=== PATIENT | female | born 1975 | race Caucasian/White ===

== ENCOUNTER 2020-02-04 08:45 | Outpatient (CLI) | payer BC, SELFPAY ==
[2020-02-04 09:35] LABS: Alanine Aminotransferase 22 U/L (0-33); Albumin Level 4.2 g/dL (3.5-5.2); Alkaline Phosphatase 68 IU/L (35-105); Anion Gap 17.9 (5-19); Aspartate Amino Transferase 21 U/L (0-32); Blood Urea Nitrogen 11 mg/dL (6-20); Calcium 9.5 mg/dL (8.5-10.5); Carbon Dioxide 25 mmol/L (22-29); Chloride 103 mmol/L (98-107); Globulin 3.2 g/dL (1.3-4.6); Glomerular Filtration Rate 53.5 mL/min (90-130); Glucose 101 mg/dL (65-115); Osmolality Calculated 290 mOsm/kg (285-295); Potassium 3.9 mmol/L (3.5-5.1); Sodium 142 mmol/L (136-145); Total Bilirubin 0.5 mg/dL (0.15-1.2); Total Protein 7.4 g/dL (6.6-8.7)
== END 2020-02-04 08:46 | disposition home or self-care (01) ==
LOC: LAB 08:45
PROVIDERS: PCP Nurse Practitioner; Visit Provider Nurse Practitioner
DX: I10 Essential (primary) hypertension (principal)
CPT/HCPCS: 36415; 80053

== ENCOUNTER 2020-02-10 08:13 | Outpatient (CLI) | payer BC, SELFPAY ==
[2020-02-10 09:19] LABS: Creatinine Urine, Random 113 mg/dL (28-217)
[2020-02-10 10:00] LABS: Microalbum Creatinine Ratio Ur 9 mg/dL (0-20); Microalbumin Random Urine 1 ug/dL (0-20)
== END 2020-02-10 08:14 | disposition home or self-care (01) ==
LOC: LAB 08:16
PROVIDERS: PCP Nurse Practitioner; Visit Provider Nurse Practitioner
DX: Q61.2 Polycystic kidney, adult type (principal)
CPT/HCPCS: 36415; 82044

== ENCOUNTER 2020-02-25 14:09 | Outpatient (CLI) | payer BC, SELFPAY ==
--- NOTE | 2020-02-25 14:15 | CT_ITS ---
WS: [id number] CT ABDOMEN PELVIS TECHNIQUE: Noncontrast CT of the abdomen and pelvis with coronal and sagittal reformatted images. CLINICAL INFORMATION: ADULT TYPE POLYCYSTIC KIDNEY COMPARISON: CT 6 24,011 DLP: 1126.[address] scans at [facility] use at least one of these dose optimization techniques: automat ed exposure control; mA and/or kV adjustment per patient size (includes targeted exams where dose is matched to clinical indication); or iterative reconstruction. FINDINGS: Again seen are changes of polycystic kidney disease with multiple progressed renal cysts and enlargem ent of both kidneys. The number of cysts has increased since the prior examination. Largest right sb al cyst measures 5.7 x 4.7 cm in the right. Bilateral peripelvic renal cysts. Adrenal glands are norm al. Multiple hepatic cysts the largest in the left hepatic lobe measuring 5.0x4.7 cm. Multiple hepatic cy sts progressed in number since the prior examination. Lung bases are well aerated. Noncontrast pancreas is unremarkable. Noncontrast spleen is normal. Norm al caliber abdominal aorta. Sigmoid diverticulosis. No evidence of acute diverticulitis. Cholecystectomy is new from previous. Sm all bilateral ovarian cysts likely physiologic. Normal lumbar spine. No other significant changes from previous. CT/CT abdomen pelvis wo con [id number] IMPRESSION: 1. Progressed changes of polycystic kidney disease with enlargement of both ki dneys as described above. 2. Interval increase in the number of hepatic and renal cysts compared to 2011 . 3. Bilateral peripelvic renal cysts. Both ureters are decompressed. 4. Interval cholecystectomy is new from previous. 5. Largest hepatic cyst measures 5.1 x 4.7 cm 6. No other significant changes
== END 2020-02-25 14:10 | disposition home or self-care (01) ==
LOC: RADWPI 14:14
PROVIDERS: Family Provider Nurse Practitioner; PCP Nurse Practitioner; Visit Provider Nurse Practitioner
DX: Q61.2 Polycystic kidney, adult type (principal); N28.9 Disorder of kidney and ureter, unspecified; Q61.02 Congenital multiple renal cysts; K76.89 Other specified diseases of liver
CPT/HCPCS: 74176

== ENCOUNTER 2020-04-20 11:46 | Outpatient (CLI) | payer BC, SELFPAY | END 2020-04-20 11:47 | disposition home or self-care (01) | LOC: RADSHAW 11:49 | PROVIDERS: PCP Nurse Practitioner; Visit Provider Nurse Practitioner | DX: Z12.4 Encounter for screening for malignant neoplasm of cervix (principal) | CPT/HCPCS: 88175 ==

== ENCOUNTER 2020-04-20 11:47 | Outpatient (CLI) | payer BC, SELFPAY ==
--- NOTE | 2020-04-20 11:59 | MM_ITS ---
WS: [id number] SCREENING DIGITAL MAMMOGRAM WITH CAD HISTORY: SCREENING COMPARISON: 03/11/2019 and 02/20/2019 Bilateral CC and MLO views submitted. Computer aided detection analyzed. Breast composition: There are scattered areas of fibroglandular density. Asymmetry measuring 1.0 cm o n the RIGHT MLO position above the nipple needs further evaluation. Otherwise no interval change. MM/[place] [id number] IMPRESSION: BI-RADS: 0-Incomplete: Need additional imaging evaluation FOLLOW UP: Need Additional Imaging RIGHT breast: Spot compression views (MLO). True ML. Ultrasound to follow if ab normality persists.
[2020-04-20 14:02] LABS: Follicle Stimulating Hormone 82.6 mIU/mL
== END 2020-04-20 11:48 | disposition home or self-care (01) ==
LOC: LAB 11:49
PROVIDERS: PCP Nurse Practitioner; Visit Provider Obstetrics & Gynecology
DX: Z12.31 Encounter for screening mammogram for malignant neoplasm of breast (principal); R23.2 Flushing; N64.89 Other specified disorders of breast
CPT/HCPCS: 77067; 83001

== ENCOUNTER 2020-05-18 12:48 | Outpatient (CLI) | payer BC, SELFPAY ==
--- NOTE | 2020-05-18 13:00 | MM_ITS ---
WS: [id number] ADDITIONAL VIEWS RIGHT BREAST HISTORY: inconclusive mammogram COMPARISON: 02/20/2019, 04/20/2020 Compression views MLO projection. True ML also submitted. Asymmetry in the superior RIGHT breast resolves with additional imaging. MM/[place] [id number] IMPRESSION: BI-RADS: 2-Benign FOLLOW-UP: 1 Year Follow-up
== END 2020-05-18 12:49 | disposition home or self-care (01) ==
LOC: RADSHAW 12:52
PROVIDERS: PCP Nurse Practitioner; Visit Provider Obstetrics & Gynecology
DX: R92.2 Inconclusive mammogram (principal)
CPT/HCPCS: 77065

== ENCOUNTER → 2020-05-21 14:14 | Outpatient (BNVA) | payer BC, SELFPAY | PROVIDERS: PCP Nurse Practitioner; Visit Provider Obstetrics & Gynecology | DX: Z01.812 Encounter for preprocedural laboratory examination (principal); R87.610 Atypical squamous cells of undetermined significance on cytologic smear of cervix (ASC-US); R87.810 Cervical high risk human papillomavirus (HPV) DNA test positive; Z78.0 Asymptomatic menopausal state | CPT/HCPCS: 81025; 88305 ==

== ENCOUNTER 2024-03-28 10:13 | Observation (INO) | payer BC, SELFPAY ==
[2024-03-28] VITALS (19 sets, daily range): BP systolic 119–145; BP diastolic 76–93; PULSE 67–85; RESP 15–26; TEMP 36.1–36.9; O2SAT 90–100; BMI 37.8; BMI 40.1
--- NOTE | 2024-03-28 | XR_ITS ---
WS: [id number] Exam: XR ankle RT 2V [id number] Date/Time of Exam: 03/28/2024 12:00 AM Reason For Exam: ARCADIO LOGAN Again noted is a markedly comminuted fracture of the lower fibula as well as a transverse fracture th rough the medial malleolus. Alignment is unchanged since the latest study of 03/28/2024. Soft tissue s welling about the ankle. There may be a fracture of the posterior tibial shelf. External traction yamini dware noted in the mid and hindfoot. XR/XR ankle RT 2V [id number] IMPRESSION: 1. Bimalleolar fractures unchanged in position. There may also be a posterior t ibial shelf fracture.
--- NOTE | 2024-03-28 10:19 | XR_ITS ---
WS: [email or web address] Right ankle, 3 views, 03/28/2024 Clinical Data: pain Comparison: None. Findings: There is a fracture dislocation of the right ankle. There is a fracture of the distal right fibula an d a fracture of the medial malleolus. The talus and right foot are dislocated posteriorly from the pl afond. There is soft tissue swelling surrounding the ankle. XR/XR ankle RT min 3V* [id number] Impression: Fracture dislocation of the right ankle with posterior dislocation of the righ t foot and the distal fibula and medial malleolus.
[2024-03-28] MEDS: etomidate 2 mg/mL INJ SDV 10 mL 10 MG IVP (10:38)
--- NOTE | 2024-03-28 10:39 | XR_ITS ---
WS: [email or web address] Right ankle, 2 views, 03/28/2024, 1047 hours Clinical Data: POST REDUCTION Comparison: None. Findings: There is reduction of the posterior fracture dislocation of the right ankle. There is closer approxim ation of the talus to the plafond of the tibia. XR/XR ankle RT 2V [id number] Impression: Reduction of the posterior fracture dislocation of the right ankle.
[2024-03-28] MEDS: morphine 4 mg/mL SDV 1 mL IM (10:52)
[2024-03-28] MEDS: ondansetron 2 mg/ML SDV 2 mL 4 MG IVP (10:52)
--- NOTE | 2024-03-28 11:48 | ECG_ITS ---
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 Measurements Intervals [place] Rate: 72 P: 18 AL: 160 QRS: -9 QRSD: 73 T: 7 QT: 383 QTc: 419 Interpretive Statements SINUS RHYTHM No previous ECG available for comparison Electronically Signed On 03-28-2024 18:29:39 CDT by Rishabh Woods M.D. [email or web address]
--- NOTE | 2024-03-28 11:48 | XR_ITS ---
WS: [id number] Portable AP upright chest, 03/28/2024 Clinical Data: dyspnea/cough Comparison: None Findings: No nodules, masses or effusions are seen. The heart is normal. The pulmonary vascularity is not increased. No pneumonia or pneumothorax is seen. The aortic arch and descending thoracic aorta s how tortuosity. XR/XR chest 1V portable [id number] Impression: Atherosclerosis.
--- NOTE | 2024-03-28 11:52 | ANES.PREANE2 ---
Pre-Anesthetic Assessment Height/Weight: Height 5 ft 1 in Weight 200 lb Temp Pulse Resp BP Pulse Ox O2 Del Method 98.1 F 75 16 145/86 98 Room Air 03/28/24 10:27 03/28/24 10:37 03/28/24 10:37 03/28/24 10:37 03/28/24 10:27 03/28/24 10:37 Operation Date: 03/28/24 12:00 Proposed Procedures p External Fixator Lower Extremity External Fixator Ankle(Right) - Tyler Hinojosa DPM Social No alcohol and No tobacco Exam alert, oriented x 3, clear to auscultation bilaterally and regular rate & rhythm Airway Submandibular: within normal limits Cervical ROM: within normal limits Mallampati: Class III Dentition: full Anesthetic Plan ASA status: 2 Anesthesia: General Other: No prior issues with anesthesia Patient had a glass of water this morning around 8 AM No significant past medical history Patient denies cardiac or pulmonary issues METs greater than 4 Plan for general anesthesia Medications/Allergies Home Medications Medication Instructions Recorded Confirmed Last Taken Type lisinopril 10 mg tablet 10 mg PO DAILY 04/20/20 06/05/20 Unknown History sertraline 50 mg tablet 25 mg PO DAILY 04/20/20 06/05/20 Unknown History conj estrogen-medroxyprogesterone 1 tab PO DAILY #30 tabs 05/21/20 06/05/20 Unknown Rx 0.3 mg-1.5 mg tablet (Prempro) calcium carbonate (Calcium 600) 600 mg PO DAILY 06/05/20 06/05/20 Unknown History multivitamin with minerals-folic 2 mcg PO DAILY 06/05/20 06/05/20 Unknown History acid 200 mcg chewable tablet (Adult Multivitamin Gummies) Allergies Allergy/AdvReac Type Severity Reaction Status Date / Time Sulfa (Sulfonamide Allergy itching, Verified 03/28/24 10:37 Antibiotics) rash PFSH Anesthesia Medical History Well woman exam with routine gynecological exam Surgical History History of cholecystectomy Family History Mother Hypertension Sister Hypercholesteremia Social History Smoking and tobacco/nicotine status: never used tobacco/nicotine Alcohol intake: never Substance/Drug Use: never Data Anesthesia Cardiac Studies: No Data to Display
[2024-03-28] MEDS: sodium chloride 0.9% 1,000 ML 30 ML IV (11:59)
[2024-03-28] MEDS: scopolamine 1.5 Patch 1 PATCH TRANSDERMA (12:02)
--- NOTE | 2024-03-28 12:10 | W.ED.EXTPRO ---
HPI - Extremity Problem General: Chief complaint: Extremity Injury, Lower Stated complaint: right ankle pain Time Seen by Provider: 03/28/24 10:19 History of Present Illness: 49-year-old female presents emergency room with right ankle pain. She missed a step and fell down while stepping out of her house. Has a obvious deformity of the right ankle. She did receive fentanyl en route she is otherwise awake and alert initially entered the room the deformity is quite obvious and there is some tenting of the skin laterally. She denies any other injuries not strike her head there is no loss of consciousness no other extremity injury Associated symptoms: Deny chest pain, fever(s) or rash Related Data Home Medications Medication Instructions Recorded Confirmed lisinopril 10 mg tablet 10 mg PO DAILY 04/20/20 06/05/20 sertraline 50 mg tablet 25 mg PO DAILY 04/20/20 06/05/20 calcium carbonate (Calcium 600) 600 mg PO DAILY 06/05/20 06/05/20 multivitamin with minerals-folic 2 mcg PO DAILY 06/05/20 06/05/20 acid 200 mcg chewable tablet (Adult Multivitamin Gummies) Previous Rx's Medication Instructions Recorded conj estrogen-medroxyprogesterone 1 tab PO DAILY #30 tabs 05/21/20 0.3 mg-1.5 mg tablet (Prempro) Allergies Allergy/AdvReac Type Severity Reaction Status Date / Time Sulfa (Sulfonamide Allergy itching, Verified 03/28/24 10:37 Antibiotics) rash Review of Systems Const: Denies: fever(s) or chills Card: Denies: chest pain Resp: Denies: dyspnea GI: Denies: abdominal pain : Denies: dysuria, urinary frequency or urinary urgency Musc: Reports: joint pain and joint swelling; Denies: neck pain or back pain Skin/Breast: Denies: rash PFSH ED PFSH: Medical History Vertigo Anxiety Hyperlipidemia Hypertension Chronic kidney disease Polycystic kidney disease Well woman exam with routine gynecological exam Surgical History History of cholecystectomy Family History Mother Hypertension Sister Hypercholesteremia Social History Smoking and tobacco/nicotine status: never used tobacco/nicotine Alcohol intake: never Substance/Drug Use: never Physical Exam Const: GENERAL APPEARANCE: cooperative ORIENTATION/CONSCIOUSNESS: Yes awake, Yes oriented to person, Yes oriented to place and Yes oriented to time HENMT: COMMON NORMALS: normocephalic, atraumatic and hearing grossly normal bilaterally HEAD & SCALP: normocephalic and atraumatic Resp: COMMON NORMALS: normal respiratory effort, No retractions, No use of accessory muscles and clear to auscultation bilaterally AUSCULTATION: clear to auscultation bilaterally Cardio: COMMON NORMALS: regular rate, regular rhythm and No murmurs present (Cardio) RATE: regular rate RHYTHM: regular rhythm GI: COMMON NORMALS: Soft to palpation and No hepatosplenomegaly present AUSCULTATION: Yes normoactive bowel sounds PALPATION: Yes Soft to palpation, No Tenderness to palpation present (GI), No Guarding due to palpation present (GI) and Yes No hepatosplenomegaly present Extremity: OTHER: Obvious deformity of the right ankle with skin tenting at the lateral malleolus. Dorsalis pedis pulse intact. Capillary refill normal. Reexamined after reduction normal capillary refill dorsalis pedis pulse intact no further tenting. No signs of open fracture. Neuro: SENSORIUM/ORIENTATION: Yes oriented to person, Yes oriented to place and Yes oriented to time Skin: COMMON NORMALS: no rashes or lesions noted GENERAL SKIN EXAM: no rashes or lesions noted Procedures Orthopedic Joint Reduction Joint #1: Time Out Performed: Yes Side: right Joint Reduction Location: ankle Analgesia: procedural sedation Shoulder Technique Used (if applicable): traction/counter-traction Post-reduction neuro exam: intact Post-reduction vascular: intact Post Reduction X-Ray Obtained: Yes Post Reduction X-Ray Results: reduced Splint Applied: Yes Patient Tolerated Procedure: well Orthopedic Splinting/Casting Injury #1: Side: right Lower Extremity Injury Location: ankle Lower Extremity Immobilizer: posterior splint Additional Comments: Patient admitted for surgical reduction of the ankle fracture as it is very unstable. Procedural Sedation Indication: fracture/dislocation reduction ASA Class: I Preparation: sack keeper applied, pulse oximeter, supplemental O2 applied, suction/airway equipment at bedside and IV secured IV Etomidate dose (mg): 10 Additional Comments: Patient had brief transient hypoxia with pretty significant fasciculations but this resolved with increased oxygen supplementation. Patient recovered without further difficulty no other interventions required Course Vital Signs: Vital signs: Vital Signs Temperature 97.6 F 03/28/24 14:24 Pulse Rate 84 03/28/24 14:24 Respiratory Rate 18 03/28/24 14:24 Blood Pressure 123/87 03/28/24 14:24 Pulse Oximetry 100 03/28/24 14:24 Oxygen Delivery Me thod Nasal Cannula 03/28/24 14:24 Oxygen Flow Rate 2 03/28/24 14:24 MDM - Extremity (Nontraumatic) Medical Decision Making Fracture reduced at the bedside under conscious sedation with etomidate morphine given for pain very unstable fracture while we were positioning for postreduction x-rays it slipped out of place it was easily reduced back into position. I contacted Dr. Hinojosa on-call for podiatry who reviewed the films we discussed case he agrees patient will need surgical stabilization emergently due to the unstable nature of the fracture. Discussed with hospitalist will place on observation orders written initial preop lab orders written as well. Medical Records I reviewed the patient's medical records. Lab Data I reviewed the patient's lab results. 03/28/24 12:26 03/28/24 12:26 Radiology Impressions Chest X-Ray 03/28/24 11:48 Impression: Atherosclerosis. Ankle X-Ray 03/28/24 13:37 Impression: External fixation with reduction of comminuted fracture dislocation of the right ankle. Laboratory Results WBC 9.73 10^3/uL (3.29-11.43) 03/28/24 12: RBC 4.04 10^6/uL (3.85-5.65) 03/28/24 12:26 Hgb 12.80 g/dL (11.27-16.99) 03/28/24 12: Hct 38.1 % (36-47) 03/28/24 12: MCV 94.3 fl (85-98) 03/28/24 12:26 MCH 31.7 pg (27-33) 03/28/24 12: MCHC 33.6 g/dL (30-55) 03/28/24 12: RDW 12.6 % (12.1-15.1) 03/28/24 12:26 Plt Count 227 10^3/cmm (157-399) 03/28/24 12: MPV 10.4 fL (7.4-10.4) 03/28/24 12: Neut % (Auto) 82.5 % 03/28/24 12: Lymph % (Auto) 13.1 % 03/28/24 12: [place] % (Auto) 3.6 % 03/28/24 12: Eos % (Auto) 0.1 % 03/28/24 12: Baso % (Auto) 0.3 % 03/28/24 12: Neut # (Auto) 8.03 10^3/uL (1.8-7.7) H 03/28/24 12: Lymph # (Auto) 1.3 10^3/uL (0.8-4.8) 03/28/24 12: [place] # (Auto) 0.4 10^3/uL (0.2-0.9) 03/28/24 12: Eos # (Auto) 0.0 10^3/uL (0.0-0.8) 03/28/24 12: Baso # (Auto) 0.0 10^3/uL (0.0-0.1) 03/28/24 12: Nucleated RBC % (auto) 0 % 03/28/24 12: Nucleated RBCs # 0.0 /100WBC 03/28/24 12: Sodium 140 mmol/L (136-145) 03/28/24 12: Potassium 4.1 mmol/L (3.5-5.1) 03/28/24 12: Chloride 105 mmol/L (98-107) 03/28/24 12: Carbon Dioxide 24 mmol/L (22-29) 03/28/24 12: Anion Gap 15.1 (5-19) 03/28/24 12:26 BUN 22 mg/dL (6-20) H 03/28/24 12:26 Creatinine 1.5 mg/dL (0.5-0.9) H 03/28/24 12:26 GFR Calculation 36.8 mL/min (90-130) L 03/28/24 12:26 Glucose 133 mg/dL (65-115) H 03/28/24 12:26 Calculated Osmolality 295 mOsm/kg (285-295) 03/28/24 12:26 Calcium 8.9 mg/dL (8.5-10.5) 03/28/24 12:26 Total Bilirubin 0.6 mg/dL (0.15-1.2) 03/28/24 12:26 AST 27 U/L (0-32) 03/28/24 12:26 ALT 29 U/L (0-33) 03/28/24 12:26 Alkaline Phosphatase 88 U/L (35-105) 03/28/24 12:26 Total Protein 7.1 g/dL (6.6-8.7) 03/28/24 12:26 Albumin 4.2 g/dL (3.5-5.2) 03/28/24 12:26 Globulin 2.9 g/dL (1.3-4.6) 03/28/24 12:26 All radiology interpretation(s) finalized by discharge Discharge Plan Discharge Patient Disposition: Admitted As Inpatient Admit Provider: Tyler Hinojosa Clinical Impression: Closed right ankle fracture, Chronic kidney disease, Hypertension Condition: Stable Coding Level of Care Code ED Telecommunications Administrator for Cait Antonio
--- NOTE | 2024-03-28 12:20 | ANES.PROC ---
Anesthesia Procedures Procedure/Date: 03/28/24 Nerve Block ^: Nerve Block 1: Main Anesthesia: other Time Out Performed: Yes Consent: requested by attending/covering physician and from patient Nerve block location: adductor canal Anesthesia monitors applied: pulse oximetry, EKG, BP cuff and oxygen Nerve block position: semi sitting Anesthetic Used: ropivicaine 0.5% Amount of anesthesia used (mL): 15 Ultrasound used to: recognize landmarks Nerve Stimulator Used?: No Interscalene/Femoral BLK: 4 stimuplex 21 g needle used for position and inplane approach Injection: neg aspiration of heme Patient Tolerated Procedure: well Complications: none Additional Comments: decadron 4mg added to block Nerve Block 2: Main Anesthesia: other Time Out Performed: Yes Consent: requested by attending/covering physician and from patient Nerve block location: popliteal Anesthesia monitors applied: pulse oximetry, EKG, BP cuff and oxygen Nerve block position: semi sitting Anesthetic Used: ropivicaine 0.5% Amount of anesthesia used (mL): 25 Ultrasound used to: recognize landmarks Nerve Stimulator Used?: Yes Interscalene/Femoral BLK: 4 stimuplex 21 g needle used for position and inplane approach Injection: neg aspiration of heme Patient Tolerated Procedure: well Complications: none
--- NOTE | 2024-03-28 12:20 | P.ANESASSM_ITS ---
Pre-Anesthetic Assessment Height/Weight: Height 5 ft 1 in Weight 200 lb Temp Pulse Resp BP Pulse Ox O2 Del Method 97.0 F L 81 18 142/85 98 Room Air 03/28/24 11:53 03/28/24 11:53 03/28/24 11:53 03/28/24 11:53 03/28/24 11:53 03/28/24 11:53 Operation Date: 03/28/24 12:00 Proposed Procedures p External Fixator Lower Extremity External Fixator Ankle(Right) - Tyler Hinojosa DPM Last intake: Intake Last Liquid Date 03/28/24 Last Liquid Time 08:30 Last Solid Date 03/27/24 Last Solid Time 20:30 Medications/Allergies Home Medications Medication Instructions Recorded Confirmed Last Taken Type lisinopril 10 mg tablet 10 mg PO DAILY 04/20/20 06/05/20 Unknown History sertraline 50 mg tablet 25 mg PO DAILY 04/20/20 06/05/20 Unknown History conj estrogen-medroxyprogesterone 1 tab PO DAILY #30 tabs 05/21/20 06/05/20 Unknown Rx 0.3 mg-1.5 mg tablet (Prempro) calcium carbonate (Calcium 600) 600 mg PO DAILY 06/05/20 06/05/20 Unknown History multivitamin with minerals-folic 2 mcg PO DAILY 06/05/20 06/05/20 Unknown History acid 200 mcg chewable tablet (Adult Multivitamin Gummies) Allergies Allergy/AdvReac Type Severity Reaction Status Date / Time Sulfa (Sulfonamide Allergy itching, Verified 03/28/24 10:37 Antibiotics) rash Current Medications Generic Name Dose Route Start Last Admin Trade Name Enedina PRN Reason Stop Dose Admin Sodium Chloride 1,000 mls @ 30 mls/hr 03/28/24 12:00 03/28/24 11:59 Sodium Chloride 0.9% IV 03/29/24 11:59 30 mls/hr .Q24H JOSE ENRIQUE Administration PFSH Anesthesia Medical History Well woman exam with routine gynecological exam Surgical History History of cholecystectomy Family History Mother Hypertension Sister Hypercholesteremia Social History Smoking and tobacco/nicotine status: never used tobacco/nicotine Alcohol intake: never Substance/Drug Use: never Data Anesthesia 03/28/24 12:26 03/28/24 12:26 Short CBC 03/28/24 Range/Units 12:26 WBC 9.73 (3.29-11.43) 10^3/uL Hgb 12.80 (11.27-16.99) g/dL Hct 38.1 (36-47) % MCV 94.3 (85-98) fl Plt Count 227 (157-399) 10^3/cmm Neut % (Auto) 82.5 % Neut # (Auto) 8.03 H (1.8-7.7) 10^3/uL Cardiac Studies: 2 No Data to Display
--- NOTE | 2024-03-28 12:21 | W.PM.OPSUD ---
Surgery/Procedure H&P Update DATE OF PROCEDURE: March 28, 2024 DATE H&P PERFORMED: 03/28/24 H&P UPDATE INFORMATION: I have reviewed H&P completed within last 30 days, I have examined patient prior to procedure, No changes to prior documentation and [place] [facility] [place] indicated PLANNED PROCEDURE: Operation Date: 03/28/24 12:00 Proposed Procedures p External Fixator Lower Extremity External Fixator Ankle(Right) - Tyler Hinojosa DPM
[2024-03-28 12:30] LABS: Basophils % 0.3 %; Eosinophils % 0.1 %; Hematocrit 38.1 % (36-47); Lymphocytes # 1.3 10^3/uL (0.8-4.8); Lymphocytes % 13.1 %; Mean Corpuscular HGB Conc 33.6 g/dL (30-55); Mean Corpuscular Hemoglobin 31.7 pg (27-33); Mean Corpuscular Volume 94.3 fl (85-98); Mean Platelet Volume 10.4 fL (7.4-10.4); Monocytes # 0.4 10^3/uL (0.2-0.9); Monocytes % 3.6 %; Neutrophils # 8.03 10^3/uL (1.8-7.7); Neutrophils % 82.5 %; Nucleated Red Blood Cells % 0 %; Platelet Count 227 10^3/cmm (157-399); Red Blood Count 4.04 10^6/uL (3.85-5.65); Red Cell Distribution Width 12.6 % (12.1-15.1); White Blood Count 9.73 10^3/uL (3.29-11.43)
[2024-03-28 12:49] LABS: Alanine Aminotransferase 29 U/L (0-33); Albumin Level 4.2 g/dL (3.5-5.2); Alkaline Phosphatase 88 U/L (35-105); Anion Gap 15.1 (5-19); Aspartate Amino Transferase 27 U/L (0-32); Blood Urea Nitrogen 22 mg/dL (6-20); Calcium 8.9 mg/dL (8.5-10.5); Carbon Dioxide 24 mmol/L (22-29); Chloride 105 mmol/L (98-107); Creatinine Clr Calc Pharmacy 46.0184; Globulin 2.9 g/dL (1.3-4.6); Glomerular Filtration Rate 36.8 mL/min (90-130); Glucose 133 mg/dL (65-115); Osmolality Calculated 295 mOsm/kg (285-295); Potassium 4.1 mmol/L (3.5-5.1); Sodium 140 mmol/L (136-145); Total Bilirubin 0.6 mg/dL (0.15-1.2); Total Protein 7.1 g/dL (6.6-8.7)
[2024-03-28] MEDS: ceFAZolin 2,000 mg SDV 2000 MG IVP (12:50)
--- NOTE | 2024-03-28 12:56 | P.HP_ITS ---
Providers/Chief Complaint 2 Admitting Physician: Andres Valdes MD Primary Care Provider: Ioana Holder APN Chief Complaint: right ankle pain History of Present Illness Melisa Moreno is a 49 year old female presenting with right ankle fracture after fall. She had no loss of consciousness. She denies any other injuries. She denies any history of sleep apnea, difficulties with anesthesia, bleeding disorders. In the emergency department it was thought her fracture was not stable and it was reduced. Podiatry was called and surgery was recommended. I saw her just prior to surgery in the holding suite. She denied any recent chest pain. She reports she could normally walk without chest pain or shortness of breath and had fair to good exercise capability. She reported no chronic health issues other than hypertension, chronic kidney disease, polycystic kidney disease, anxiety, vertigo. Review of Systems 2 General: Reports: 10 or more systems reviewed and unremarkable except in HPI and below Card: Denies: chest pain Resp: Denies: dyspnea Medications/Allergies Home Medications Medication Instructions Recorded Confirmed Last Taken Type lisinopril 10 mg tablet 10 mg PO DAILY 04/20/20 06/05/20 Unknown History sertraline 50 mg tablet 25 mg PO DAILY 04/20/20 06/05/20 Unknown History conj estrogen-medroxyprogesterone 1 tab PO DAILY #30 tabs 05/21/20 06/05/20 Unknown Rx 0.3 mg-1.5 mg tablet (Prempro) calcium carbonate (Calcium 600) 600 mg PO DAILY 06/05/20 06/05/20 Unknown History multivitamin with minerals-folic 2 mcg PO DAILY 06/05/20 06/05/20 Unknown History acid 200 mcg chewable tablet (Adult Multivitamin Gummies) Allergies Allergy/AdvReac Type Severity Reaction Status Date / Time Sulfa (Sulfonamide Allergy itching, Verified 03/28/24 10:37 Antibiotics) rash PFSH Acute 2 PFSH: Medical History (Updated 03/28/24 @ 13:02 by Andres Valdes MD) Vertigo Anxiety Hyperlipidemia Hypertension Chronic kidney disease Polycystic kidney disease Well woman exam with routine gynecological exam Surgical History History of cholecystectomy Family History Mother Hypertension Sister Hypercholesteremia Social History Smoking and tobacco/nicotine status: never used tobacco/nicotine Alcohol intake: never Substance/Drug Use: never Vitals/I&O/Wt Last Vital Signs Temp 97.0 F L 03/28/24 11:53 Pulse 81 03/28/24 11:53 Resp 18 03/28/24 11:53 BP 142/85 03/28/24 11:53 Pulse Ox 98 03/28/24 11:53 O2 Del Method Room Air 03/28/24 11:53 Weight last 48 hrs Weight 90.718 kg Physical Exam 2 Narrative: General exam is white female, no distress HEENT: Atraumatic normocephalic. Oropharynx clear Neck is supple no lymphadenopathy thyromegaly Cardiovascular regular in rhythm without murmur Lungs clear Abdomen is soft, no obvious organomegaly Extremities no cyanosis clubbing, splint present right lower extremity Skin no rash Neuro no focal deficits Data 03/28/24 12:26 03/28/24 12:26 Other Labs: LFTs are normal Chest x-ray without infiltrate which I reviewed Ankle x-ray fracture dislocation right ankle with posterior dislocation. I reviewed this as well A&P Assessment and plan (1) Closed right ankle fracture: Had fracture dislocation, that was unstable in the emergency department. Podiatry consult N.p.o. Pain control (2) Chronic kidney disease: Avoid renal toxic medication Hydration CBC, BMP tomorrow (3) Hypertension: Hold lisinopril, monitor blood pressure Plan Other medical problems as outlined in past medical history Full code DVT prophylaxis to be addressed following surgery. SCDs for now. I discussed some of the risks and benefits of surgery. Attestations 2 Medical Necessity Statement*: Will likely require less than 2 midnights for lower extremity fracture with need for surgery Diagnoses Closed right ankle fracture S82.891A Chronic kidney disease N18.9 Hypertension I10 Time Spent (min) 54
--- NOTE | 2024-03-28 13:37 | XR_ITS ---
WS: [id number] Right ankle, 3 views, 03/28/2024,1403 hours Clinical Data: post op Comparison: Right ankle, 03/28/2024,1046 hours Findings: External skeletal fixation is now reducing the right ankle fracture. There is a annamarie in the right firs t metatarsal and another annamarie through the calcaneus reducing the comminuted right ankle fracture dislo cation. XR/XR ankle RT min 3V* [id number] Impression: External fixation with reduction of comminuted fracture dislocation of the righ t ankle.
--- NOTE | 2024-03-28 13:40 | P.CONIM_ITS ---
Providers/Reason For Consult 2 Consulting Physician/Specialty*: David Fishman.P.M./podiatry Reason for Consult*: Right trimalleolar ankle fracture Primary Care Provider: Ioana Holder APN History of Present Illness History of Present Illness Melisa Moreno is a 49 year old female who presented to the emergency department this morning (03/28/2024) after sustaining a fall down her front stairs of her house. Patient states that she did not hit her head or lose consciousness with the fall. Right ankle was injured. Patient was unable to bear weight and experienced extreme pain. She presented to the emergency department for further workup and evaluation where she was found to have a severely displaced right ankle fracture. This was reduced and splinted. However, this was noted to be unstable and readily redislocated after reduction. Podiatry was consulted to evaluate and treat. Based on the inherent instability of the fracture pattern was recommended the patient go to the operating room for close reduction and external fixator application. Patient has past medical history significant for hypertension, chronic kidney disease, polycystic kidney disease. Review of Systems 2 General: Reports: 10 or more systems reviewed and unremarkable except in HPI and below Const: Denies: fever(s), chills or fatigue Eyes: Denies: change in vision ENMT: Denies: sinus pain Card: Denies: chest pain, palpitations or lightheadedness Resp: Denies: dyspnea GI: Denies: abdominal pain, nausea or vomiting Musc: Reports: extremity pain, extremity swelling and limited range of motion; Denies: neck pain or back pain Skin/Breast: Reports: skin swelling Neuro: Denies: numbness in extremities Medications/Allergies Home Medications Medication Instructions Recorded Confirmed Last Taken Type lisinopril 10 mg tablet 10 mg PO DAILY 04/20/20 06/05/20 Unknown History sertraline 50 mg tablet 25 mg PO DAILY 04/20/20 06/05/20 Unknown History conj estrogen-medroxyprogesterone 1 tab PO DAILY #30 tabs 05/21/20 06/05/20 Unknown Rx 0.3 mg-1.5 mg tablet (Prempro) calcium carbonate (Calcium 600) 600 mg PO DAILY 06/05/20 06/05/20 Unknown History multivitamin with minerals-folic 2 mcg PO DAILY 06/05/20 06/05/20 Unknown History acid 200 mcg chewable tablet (Adult Multivitamin Gummies) Allergies Allergy/AdvReac Type Severity Reaction Status Date / Time Sulfa (Sulfonamide Allergy itching, Verified 03/28/24 10:37 Antibiotics) rash Current Medications Generic Name Dose Route Start Last Admin Trade Name Freq PRN Reason Stop Dose Admin Sodium Chloride 1,000 mls @ 30 mls/hr 03/28/24 12:00 03/28/24 11:59 Sodium Chloride 0.9% IV 03/29/24 11:59 30 mls/hr .Q24H JOSE ENRIQUE Administration PFSH Acute 2 PFSH: Medical History Vertigo Anxiety Hyperlipidemia Hypertension Chronic kidney disease Polycystic kidney disease Well woman exam with routine gynecological exam Surgical History History of cholecystectomy Family History Mother Hypertension Sister Hypercholesteremia Social History Smoking and tobacco/nicotine status: never used tobacco/nicotine Alcohol intake: never Substance/Drug Use: never Vitals/I&O/Wt Last Vital Signs Temp 97.0 F L 03/28/24 11:53 Pulse 81 03/28/24 11:53 Resp 18 03/28/24 11:53 BP 142/85 03/28/24 11:53 Pulse Ox 98 03/28/24 11:53 O2 Del Method Room Air 03/28/24 11:53 Weight last 48 hrs Weight 200 lb Physical Exam 2 Narrative: BELOW IS A FOCUSED LOWER EXTREMITY EXAM GENERAL: A&O x 3 VASCULAR: DP/PT pulses palpable 2/4 with CFT intact, <3seconds to distal digits DERMATOLOGICAL: Skin turgor and temperature is within normal limits. No interdigital maceration noted. No tenting of the skin or breaks in the skin noted. MUSCULOSKELETAL: Obvious ankle deformity right lower extremity. Pain to right lower extremity consistent with posttraumatic state. Full musculoskeletal exam deferred secondary to posttraumatic state. NEUROLOGICAL: Neurological sensation to the affected foot and ankle is present through L4-S1 dermatomes with no hyper/hypoesthesias, negative Tinel or Valleix's sign IMAGING: Three-view x-rays of the right ankle taken in the emergency department were personally turbid by me which show displaced trimalleolar ankle fracture that underwent subsequent reduction. Postreduction films show appropriate positioning. However, reduction is being manually held by providers hand. Upon redislocation no further x-rays obtained. Data 03/28/24 12:26 03/28/24 12:26 A&P Assessment and plan (1) Trimalleolar fracture of right ankle: Plan -Right trimalleolar ankle fracture -Patient has sustained a severely displaced, right trimalleolar ankle fracture. This underwent reduction in the emergency department. However, due to the inherent instability of the fracture pattern reduction was not maintained. Upon reviewing the initial fracture pattern and amount of dislocation concern for soft tissue envelope as it appeared to be tenting of the medial skin on initial plain films obtained. Based on these findings I opted for closed reduction with application of external fixator to preserve soft tissue envelope until swelling subsides. A lengthy discussion was had with the patient in the emergency department about treatment plans. Patient had been n.p.o. since yesterday evening. Patient was taken to the operating room where she underwent closed reduction and external fixator application under general anesthesia. Patient also received a popliteal block by anesthesia department. -CT scan right ankle reviewed postoperatively which shows trimalleolar ankle fracture with improved position with external fixator intact -Diet: Okay for diet from podiatry standpoint -No further surgical intervention by podiatry during this admission -Pain Mgmt: Per primary team. Recommend [place] or similar for outpatient pain control -Weight bearing: Nonweightbearing to right lower extremity using wheelchair. Patient will need assistance from physical therapy prior to discharge for transfers. -Dressings: Leave postoperative dressing clean, dry, intact -Discharge plan: Patient is okay to discharge home from podiatry standpoint now the CT scan has been obtained and external fixator has been applied. This will be pending medical stabilization and appropriate pain management. Patient will need wheelchair upon discharge from the hospital to maintain nonweightbearing status. Patient will be unable to use crutches with external fixator due to the weight of the fixator and the pain that this will cause on the fracture pattern. Patient is to follow-up with Dr. Hinojosa in the outpatient setting next week Coding Level of Care Code Acute Code for Chg Fwd Diagnoses Trimalleolar fracture of right ankle S82.851A
--- NOTE | 2024-03-28 13:41 | CTR_ITS ---
PROCEDURE INFORMATION: Exam: CT Right Lower Extremity, Ankle Exam date and time: 03/28/2024 4:13 PM Age: 49 years old Clinical indication: Other: FX; Prior surgery; Surgery date: Post-operative (0-2 days); Surgery type: Ankle; Additional info: Ankle fracture/surgical planning TECHNIQUE: Imaging protocol: CT of the right lower extremity without contrast was performed. Exam focused on the ankle. Radiation optimization: All CT scans at this facility use at least one of these dose optimization techniques: automated exposure control; mA and/or kV adjustment per patient size (includes targeted exams where dose is matched to clinical indication); or iterative reconstruction. COMPARISON: CR XR ankle RT min 3V* [id number] 03/28/2024 2:00 PM RADIATION DOSE METRICS: Total DLP (mGy-cm): 136 FINDINGS: Bones/joints: Transverse complete medial malleolar fracture, distracted 5 mm, slight posterior displacement of the distal segment, minimal comminution. Comminuted distal fibular metadiaphyseal fracture, mildly impacted. Distal tibial posterior malleolar fracture, posterior lower margin rotation, minimal comminution, the dominant 16.5 x 18.4 x 9.2 mm fragment is displaced 2 mm superiorly. Small intra-articular bone fragments appear to be present (series 9, images 31 and 25). Trans calcaneal external fixator. Soft tissues: Subcutaneous hyperdensity (54 Hounsfield units) lateral to the lateral malleolus, measuring approximately 3.8 x 3[address]/CT ankle RT wo con* [id number] IMPRESSION: 1. Distal tibial medial and posterior malleolar fractures, comminuted distal fibular fracture. 2. Small intra-articular bone fragments. 3. Lateral soft tissue hematoma.
--- NOTE | 2024-03-28 13:43 | PM.OP ---
Operative Report Date of procedure: March 28, 2024 Pre-op diagnosis: Right trimalleolar ankle fracture Post-op diagnosis: Same Post-op findings: Reduced right trimalleolar ankle fracture Procedure done: Application multiplanar external fixator right lower extremity CPT 10089 Implants: External fixator multiplanar right lower extremity Surgeon: Tyler Hinojosa DPM Vise Hand: Casey Estimated blood loss: 5 cc Complications: None Findings: See above Procedure: Patient is a 49-year-old female that has a history of right trimalleolar ankle fracture that she sustained today 03/28/2024. Extent of the injury and the inherent stability of the fracture pattern necessitates application of external fixator right lower extremity. A lengthy discussion regarding the procedure, including risks and complications has been had with the patient and is noted in the recent clinic note. Written and verbal consent have been obtained. All patient questions have been answered to the patient?s satisfaction. No written or verbal guarantees have been given or implied. The patient has been NPO since yesterday evening. The history has been reviewed and the history and physical is current. The signed consent was confirmed and placed in the patient chart. Patient imaging has been reviewed and is consistent with the diagnosis. Under mild sedation, the patient was brought into the operating room and placed on the table in the supine position. Patient received popliteal block by the anesthesia department the preoperative holding area. IV antibiotics were given by the anesthesia team as preoperative surgical prophylaxis. General sedation was then performed by the anesthesiateam. A pneumatic tourniquet was then placed about the right thigh. The operative extremity was then prepped and draped in the usual fashion. After preparation, the following was then performed. Attention was directed to the right ankle. There was noted to be significant posttraumatic edema circumferentially about the ankle with ecchymoses to the medial malleolar region. Given these findings it was determined that external fixation was the patient's best option given the soft tissue envelope. A #15 blade was used to make 2 small stab incisions over the anteromedial surface of the tibia. Mosquito hemostat was used to bluntly dissect down to the level of bone. Next, 2 tibial half pins were driven into the anterior medial tibia from anterior to posterior. Next, a transfixation pin was driven in the perpendicular plane to the tibial half pins from lateral to medial through the calcaneus. This was done after a small stab incision was made on the lateral and medial aspect of the calcaneus. Blunt dissection was carried down to the level of the lateral wall of the calcaneus before the transfixing pin was driven from lateral to medial until it was appropriately positioned in the body of the calcaneus. This was visualized on calcaneal axial view. Next, a publishing agent was attached to the tibial half pins. Under direct visualization of C-arm fluoroscopy the right ankle fracture was manually reduced to a more satisfactory anatomical alignment. With the ankle reduced to a satisfactory position, the publishing agent was then fixated to a carbon fiber bar measuring 400 mm that was then fixated to the transaxial pin of the calcaneus. This was performed on both the medial and lateral aspect of the right lower extremity in standard delta frame fashion. Good positioning and alignment of the fracture fragments was visualized on C-arm imaging as well as clinically. Attention was then directed to the dorsomedial aspect of the first metatarsal. A #15 blade was used to make a small stab incision over the midshaft. Blunt dissection was carried down to the level of bone. A half pin was then driven into the dorsal medial aspect of the first metatarsal to provide stable triplanar fixation about the right ankle. This was done to prevent further coronal plane movement of the fracture sites. The half pin of the first metatarsal was then fixated to the delta frame via carbon fiber bar measuring 200 mm. Good positioning of the pins and multiplanar fixator was visualized on C-arm imaging. Next, the frame was tightened down appropriately and was noted to be a solid fixation. The pin sites were dressed with Xeroform, 4 x 4 gauze, Kerlix before the leg was wrapped in 4 inch Elliot bandage. The patient tolerated the procedure and anesthesia well and without complication. The patient was transported from the operating room to the recovery room with vital signs stable and vascular status intact to all digits of the right foot. The patient was instructed to remain non-weightbearing to the operative extremity, to keep surgical dressing clean, dry and intact. The patient will be transferred back to the floor once anesthesia criteria is met. I will continue to round on and follow the patient in the inpatient setting and provide recommendations to stabilize the patient for discharge. If pain is well managed patient will be okay to discharge from podiatry standpoint, after CT scan is performed, with close follow-up (within 1 week) for definitive surgical planning.
[2024-03-28] MEDS: HYDROmorphone 1 mg/mL INJ 1 mL 0.5 MG IVP (14:07)
[2024-03-28] MEDS: sodium chloride 0.9% 1,000 ML 75 ML IV (15:28)
[2024-03-28] MEDS: HYDROcodone-acetaminophen 5-325 mg Tablet 1 TAB PO (15:33)
[2024-03-28 22:06] LABS: Charge for UA Resulting for Rev
[2024-03-28 22:09] LABS: Bilirubin Urine Negative (Negative); Blood Urine Negative (Negative); Glucose Urine UA Negative (Normal); Ketones Urine Negative (Negative); Leukocyte Esterase Urine Negative (Negative); Nitrate Urine Negative (Negative); Protein Urine Negative (Negative); Specific Gravity, Urine 1.009 (1.005-1.030); Urine Appearance Clear (CLEAR); Urine Color Yellow (Yellow)
[2024-03-28 22:13] LABS: Bacteria Urine Trace /hpf; RBC Urine 0-2 /hpf (0-2); Squamous Epithelial Cell Urine 0-5 /hpf (0-5); WBC Urine 0-5 /hpf (0-5)
[2024-03-29] VITALS: BP 110/75; PULSE 61; RESP 16; TEMP 37; O2SAT 97
[2024-03-29] MEDS: HYDROcodone-acetaminophen 5-325 mg Tablet 1 TAB PO ×3 (00:47→12:42)
[2024-03-29] MEDS: sodium chloride 0.9% 1,000 ML 75 ML IV (03:37)
[2024-03-29 04:00] VITALS: BP 112/71; PULSE 66; RESP 17; TEMP 36.9; O2SAT 96
[2024-03-29 05:14] LABS: Basophils % 0.1 %; Lymphocytes # 1.8 10^3/uL (0.8-4.8); Lymphocytes % 16.7 %; Mean Corpuscular HGB Conc 32.8 g/dL (30-55); Mean Corpuscular Hemoglobin 31.4 pg (27-33); Mean Corpuscular Volume 95.7 fl (85-98); Monocytes # 0.7 10^3/uL (0.2-0.9); Monocytes % 6.3 %; Neutrophils % 76.4 %; Nucleated Red Blood Cells % 0 %; Platelet Count 229 10^3/cmm (157-399); Red Blood Count 3.76 10^6/uL (3.85-5.65); Red Cell Distribution Width 12.9 % (12.1-15.1)
[2024-03-29 05:34] LABS: Anion Gap 15.3 (5-19); Blood Urea Nitrogen 19 mg/dL (6-20); Calcium 8.6 mg/dL (8.5-10.5); Carbon Dioxide 22 mmol/L (22-29); Chloride 110 mmol/L (98-107); Creatinine Clr Calc Pharmacy 47.6249; Glomerular Filtration Rate 36.8 mL/min (90-130); Glucose 114 mg/dL (65-115); Osmolality Calculated 297 mOsm/kg (285-295); Potassium 5.3 mmol/L (3.5-5.1); Sodium 142 mmol/L (136-145)
[2024-03-29 08:00] VITALS: BP 123/70; PULSE 64; RESP 16; TEMP 36.8; O2SAT 96
[2024-03-29] MEDS: enoxaparin 40 mg/0.4 mL Syringe SUBCUT (08:48)
--- NOTE | 2024-03-29 08:51 | PC.CHAP ---
Pastoral Care Encounter/Spiritual Assessment Type of Contact [] Declined director of security visit [] Patient/Family/Request visit [] Outpatient visit [] Follow-up visit [] Physician referral [] Code/Alert [x] Routine visit [] Staff referral [] Actively dying [] Patient sleeping [] Family support [] [] Out of room [] Palliative care [] [] Receiving care in room [] Pre-surgical visit [] Trauma [] Long length of stay [] ICU visit [] Other: Relational/Emotional Strength [x] Patient feels connected with others/family/visitors/staff [] Distress [] Loneliness/isolation [] Abandonment Spirituality of Patient [x] Person of Luna [x] Attends [facility] of their [place] [x] Believes in Prayer [x] Reads Bible or Worship materials [] There are Spiritual issues to be addressed Armored Service Technician Interventions [x] Prayer [x] Active listening [x] Non-anxious presence [] Spiritual/emotional support [] Crisis/trauma care [] Spiritual counseling [] Bereavement support [] Provided bereavement packet [] Provided Bible/devotional materials [] Provided toy/stuffed animal, coloring book to patient or family member [] Provided Communion [] Anointing/[place] [] Salvation [] Completed spiritual assessment [] Other: Impact on Illness or Injury [] Angry [] Fearful [] Anxious [] Often cries [] Exhaustion [] Unable to work [] Unable to attend denominational [x] Unable to walk/stand [] Unable to read [x] Unable to drive [] Unable to eat/drink [] Unable to sleep [] Unable to be with family [] Patient intubated [] Other: Summary Plus 1. Time spent with patient 20 min
--- NOTE | 2024-03-29 10:12 | PC.NURSE ---
PCP follow up scheduled for April 09 due to that being the earliest available appointment.
--- NOTE | 2024-03-29 10:22 | PM.DCS ---
Discharge Providers Date of Admission: 03/28/24 13:48 Date of Discharge: March 29, 2024 Attending Provider at Admission: Tyler Hinojosa DPM Attending Provider at Discharge: Andres Valdes MD Primary Care Provider: Ioana Holder APN Diagnoses at Discharge Discharge Diagnosis (1) Trimalleolar fracture of right ankle: Status: Acute Reason for Visit Reason for Visit: right ankle pain Hospital Course Hospital Course Patient presented after mechanical fall, sustaining a trimalleolar fracture of her right ankle with dislocation. Podiatry was consulted, and she underwent fracture repair after initial reduction was done in the emergency department on March 28. She tolerated this well, and it was thought she could be discharged on March 29. Laboratory was acceptable. Potassium slightly elevated 5.3 so I asked that she hold her lisinopril the next day before resuming it and have a BMP checked in 3 to 5 days. She should continue hydration, and her regular home medicines. I visited with surgery and they recommended 81 mg of aspirin daily secondary to her ankle surgery for prevention of DVT. She was told to be nonweightbearing on that leg, using a wheelchair.. She was given an opportunity to ask questions, and agreed with the plan. Discharge clarified with podiatry today. Physical Exam Narrative: General Exam no distress Neck is supple Cardiovascular regular rate and rhythm Lungs clear Abdomen soft Extremity no cyanosis clubbing or edema. Right with dressing and external fixator. Able to move toes, good perfusion. Discharge Data Studies Completed and Pending Completed Studies During Hospitalization Category Date Time Status CT ankle RT wo con* [id number] Stat Cat Scan 03/28/24 13:41 Completed XR ankle RT 2V [id number] Stat Exams 03/28/24 10:39 Completed XR ankle RT min 3V* [id number] Stat Exams 03/28/24 10:19 Completed XR ankle RT min 3V* [id number] Stat Exams 03/28/24 13:37 Completed XR chest 1V portable [id number] Stat Exams 03/28/24 11:48 Completed Pending at discharge Category Date Time Status C-arm Fluoroscopy [id number] Stat Exams 03/28/24 12:00 Taken Osmolality Urine Routine Lab 03/29/24 09:08 Received Radiology Impressions Chest X-Ray 03/28/24 11:48 Impression: Atherosclerosis. Ankle X-Ray 03/28/24 13:37 Impression: External fixation with reduction of comminuted fracture dislocation of the right ankle. Ankle CT 03/28/24 13:41 IMPRESSION: 1. Distal tibial medial and posterior malleolar fractures, comminuted distal fibular fracture. 2. Small intra-articular bone fragments. 3. Lateral soft tissue hematoma. Laboratory Results WBC 10.60 10^3/uL (3.29-11.43) 03/29/24 04:24 RBC 3.76 10^6/uL (3.85-5.65) L 03/29/24 04:24 Hgb 11.80 g/dL (11.27-16.99) 03/29/24 04:24 Hct 36.0 % (36-47) 03/29/24 04:24 MCV 95.7 fl (85-98) 03/29/24 04:24 MCH 31.4 pg (27-33) 03/29/24 04:24 MCHC 32.8 g/dL (30-55) 03/29/24 04:24 RDW 12.9 % (12.1-15.1) 03/29/24 04:24 Plt Count 229 10^3/cmm (157-399) 03/29/24 04:24 MPV 11.0 fL (7.4-10.4) H 03/29/24 04:24 Neut % (Auto) 76.4 % 03/29/24 04: Lymph % (Auto) 16.7 % 03/29/24 04:24 [place] % (Auto) 6.3 % 03/29/24 04:24 Eos % (Auto) 0.0 % 03/29/24 04:24 Baso % (Auto) 0.1 % 03/29/24 04:24 Neut # (Auto) 8.10 10^3/uL (1.8-7.7) H 03/29/24 04:24 Lymph # (Auto) 1.8 10^3/uL (0.8-4.8) 03/29/24 04:24 Trinity # (Auto) 0.7 10^3/uL (0.2-0.9) 03/29/24 04:24 Eos # (Auto) 0.0 10^3/uL (0.0-0.8) 03/29/24 04:24 Baso # (Auto) 0.0 10^3/uL (0.0-0.1) 03/29/24 04:24 Nucleated RBC % (auto) 0 % 03/29/24 04:24 Nucleated RBCs # 0.0 /100WBC 03/29/24 04:24 Sodium 142 mmol/L (136-145) 03/29/24 04:24 Potassium 5.3 mmol/L (3.5-5.1) H 03/29/24 04:24 Chloride 110 mmol/L (98-107) H 03/29/24 04:24 Carbon Dioxide 22 mmol/L (22-29) 03/29/24 04:24 Anion Gap 15.3 (5-19) 03/29/24 04:24 BUN 19 mg/dL (6-20) 03/29/24 04:24 Creatinine 1.5 mg/dL (0.5-0.9) H 03/29/24 04:24 GFR Calculation 36.8 mL/min (90-130) L 03/29/24 04:24 Glucose 114 mg/dL (65-115) 03/29/24 04:24 Calculated Osmolality 297 mOsm/kg (285-295) H 03/29/24 04:24 Calcium 8.6 mg/dL (8.5-10.5) 03/29/24 04:24 Total Bilirubin 0.6 mg/dL (0.15-1.2) 03/28/24 12:26 AST 27 U/L (0-32) 03/28/24 12:26 ALT 29 U/L (0-33) 03/28/24 12:26 Alkaline Phosphatase 88 U/L (35-105) 03/28/24 12:26 Total Protein 7.1 g/dL (6.6-8.7) 03/28/24 12:26 Albumin 4.2 g/dL (3.5-5.2) 03/28/24 12:26 Globulin 2.9 g/dL (1.3-4.6) 03/28/24 12:26 Urine Color Yellow (Yellow) 03/28/24 21:45 Urine Appearance Clear (CLEAR) 03/28/24 21:45 Urine pH 6.0 (5-7) 03/28/24 21:45 Ur Specific [place] 1.009 (1.005-1.030) 03/28/24 21:45 Urine Protein Negative (Negative) 03/28/24 21:45 Urine Glucose (UA) Negative (Normal) 03/28/24 21:45 Urine Ketones Negative (Negative) 03/28/24 21:45 Urine Blood Negative (Negative) 03/28/24 21:45 Urine Nitrate Negative (Negative) 03/28/24 21:45 Urine Bilirubin Negative (Negative) 03/28/24 21:45 Urine Urobilinogen 1.0 mg/dL (Negative) 03/28/24 21:45 Ur Leukocyte Esterase Negative (Negative) 03/28/24 21:45 Urine RBC 0-2 /hpf (0-2) 03/28/24 21:45 Urine WBC 0-5 /hpf (0-5) 03/28/24 21:45 Ur Squamous Epith Cells 0-5 /hpf (0-5) 03/28/24 21:45 Amorphous Sediment Not Reportable 03/28/24 21:45 Urine Bacteria Trace /hpf (NONE) 03/28/24 21:45 Hyaline Casts 0.40 /lpf 03/28/24 21:45 Vitals Last Vital Signs Temp 98.3 F 03/29/24 08:00 Pulse 64 03/29/24 08:00 Resp 16 03/29/24 08:00 BP 123/70 03/29/24 08:00 Pulse Ox 96 03/29/24 08:00 O2 Del Method Room Air 03/29/24 04:00 O2 Flow Rate 2 03/28/24 14:24 Discharge Plan Discharge Patient Disposition: Home Condition: Stable Prescriptions: New hydrocodone-acetaminophen 5-325 mg Tablet 1 tab PO Q4H PRN (Reason: Moderate To Severe Pain) Qty: 20 0RF aspirin 81 mg capsule 81 mg PO DAILY Qty: 30 0RF Continued lisinopril 10 mg tablet 10 mg PO DAILY atorvastatin 10 mg tablet 10 mg PO DAILY sertraline 25 mg tablet 25 mg PO DAILY Jynarque 45 mg (AM)/ 15 mg (PM) tablets, sequential See Rx Instructions .ROUTE .COMPLEX Rx Instructions: Take 45mg in the morning and 15mg 8 hours later. Discharge Orders: Discharge Order (Routine); Ordered 03/29/24 Ordered By: Andres Valdes Referrals: Ioana Holder APN [Primary Care Provider] - 04/09/24 2:30 pm (BMP on follow-up) Tyler Hinojosa DPM [Physician] - 1 week (We have notified your physician's clinic of the need for a follow-up appointment to be scheduled. If you have not heard from them within the next 2 business days, please call them directly. ) Discharge Diet: Usual diet Discharge Activity: Wheelchair as instructed Patient Instructions: Acute Wound Care (DC), Opioid Safety, Post Anesthesia Care Activity Restrictions/Additional Instructions: Take all medicine as prescribed Follow-up next week with podiatry Follow-up with your primary care provider 3 to 5 days with BMP Hold your lisinopril tomorrow, then resume the following day Return for any concerns Discharge Attestations Time Spent in Discharge Care*: greater than 30 min Quality Metrics Clinical Quality Measures [ No reported AMI, CVA or VTE this stay] Coding Level of Care Code 65690 Total time (in minutes) for Discharge: 34 Diagnoses Trimalleolar fracture of right ankle S82.851A
[2024-03-29 12:00] VITALS: BP 104/69; PULSE 64; RESP 16; TEMP 36.8; O2SAT 97
[2024-03-29 14:43] VITALS: BP 104/69; PULSE 64; RESP 16; TEMP 36.8; O2SAT 97
[2024-04-01 13:15] LABS: Osmolality Urine 298 mOsm/kg (50-1200)
== END 2024-03-29 14:44 | disposition home or self-care (01) ==
LOC: ER 12:11 → MEDSURG 13:49
PROVIDERS: Admitting Provider Podiatrist Foot & Ankle Surgery; Emergency Provider Family Medicine; PCP Nurse Practitioner; Visit Provider Internal Medicine
PROC: (CPT 20692; principal; 2024-03-28 12:00)
DX: S82.851A Displaced trimalleolar fracture of right lower leg, initial encounter for closed fracture (principal); W10.9XXA Fall (on) (from) unspecified stairs and steps, initial encounter; I12.9 Hypertensive chronic kidney disease with stage 1 through stage 4 chronic kidney disease, or unspecified chronic kidney disease; N18.9 Chronic kidney disease, unspecified; E78.5 Hyperlipidemia, unspecified
CPT/HCPCS: 20692; 27788; 36415; 71045; 73600; 73610; 73700; 76000; 80048; 80053; 81003; 81015; 83935; 85025; 93005; 94799; 96372; 99152; 99285; C1713; G0378; J0690; J1170; J1650; J2270; J2405; J2704; J3490; J7030

== ENCOUNTER 2024-04-10 05:34 | Day surgery (SDC) | payer BC, SELFPAY ==
[2024-04-10] VITALS (10 sets, daily range): BP systolic 104–147; BP diastolic 66–97; PULSE 79–100; RESP 12–20; TEMP 36.8–37.1; O2SAT 92–97
[2024-04-10] MEDS: sodium chloride 0.9% 1,000 ML 30 ML IV (06:13)
[2024-04-10] MEDS: acetaminophen 1,000 MG/100 ML PIGGYBACK 400 MG IV (06:15)
[2024-04-10] MEDS: scopolamine 1.5 Patch 1 PATCH TRANSDERMA (06:21)
--- NOTE | 2024-04-10 06:30 | P.ANESASSM_ITS ---
Pre-Anesthetic Assessment Height/Weight: Height 5 ft 1 in Operation Date: 04/10/24 07:00 Proposed Procedures p ORIF Ankle ORIF Trimalleolar Fracture(Right) - Tyler Hinojosa DPM s Ankle Arthroscopy(Right) - Tyler Hinojosa DPM Social No alcohol and No tobacco Exam alert, oriented x 3, clear to auscultation bilaterally and regular rate & rhythm Airway Submandibular: within normal limits Cervical ROM: within normal limits Mallampati: Class III Dentition: full Anesthetic Plan ASA status: 2 Anesthesia: General and Regional (specify below) Other: No prior issues with anesthesia NPO since midnight Hypertension, on lisinopril Labs 03/29 reviewed, potassium at that time 5.3. Repeat K+ this am 3.8 CKD, on Jynarque Patient denies pulmonary issues METs greater than 4 Plan for general anesthesia with popliteal block Medications/Allergies Home Medications Medication Instructions Recorded Confirmed Last Taken Type lisinopril 10 mg tablet 10 mg PO DAILY 04/20/20 04/10/24 04/09/24 History aspirin 81 mg capsule 81 mg PO DAILY #30 caps 03/29/24 04/10/24 04/09/24 Rx atorvastatin 10 mg tablet 10 mg PO DAILY 03/29/24 04/10/24 04/09/24 History hydrocodone 5 mg-acetaminophen 325 1 tab PO Q4H PRN Moderate To 03/29/24 04/10/24 03/29/24 19:00 Rx mg tablet Severe Pain #20 tabs sertraline 25 mg tablet 25 mg PO DAILY 03/29/24 04/10/24 04/09/24 History tolvaptan (polycys kidney dis) 45 See Rx Instructions .Route .COMPLEX 03/29/24 04/10/24 04/09/24 History mg (AM)/15 mg (PM) tablets (Jynarque) hydrocodone 10 mg-acetaminophen 1 tab PO Q6H PRN pain #28 tabs 04/10/24 Unknown Rx 325 mg tablet Allergies Allergy/AdvReac Type Severity Reaction Status Date / Time Sulfa (Sulfonamide Allergy itching, Verified 04/03/24 14:46 Antibiotics) rash PFSH Anesthesia Medical History Vertigo Anxiety Hyperlipidemia Hypertension Chronic kidney disease Polycystic kidney disease Well woman exam with routine gynecological exam Surgical History History of cholecystectomy Family History Mother Hypertension Sister Hypercholesteremia Social History Smoking and tobacco/nicotine status: unknown if used tobacco/nicotine Alcohol intake: never Substance/Drug Use: never Data Anesthesia 04/10/24 06:08 Cardiac Studies: 2 No Data to Display
--- NOTE | 2024-04-10 06:47 | W.PM.OPSUD ---
Surgery/Procedure H&P Update DATE OF PROCEDURE: April 10, 2024 DATE H&P PERFORMED: 04/03/24 H&P UPDATE INFORMATION: I have reviewed H&P completed within last 30 days, I have examined patient prior to procedure, No changes to prior documentation and H&P is in [facility] [place] on date indicated PREOP DIAGNOSIS: Right trimalleolar ankle fracture PLANNED PROCEDURE: Operation Date: 04/10/24 07:00 Proposed Procedures p ORIF Ankle ORIF Trimalleolar Fracture(Right) - Tyler Hinojosa DPM s Ankle Arthroscopy(Right) - Tyler Hinojosa DPM
[2024-04-10 07:03] LABS: Anion Gap 19.8 (5-19); Blood Urea Nitrogen 26 mg/dL (6-20); Carbon Dioxide 24 mmol/L (22-29); Chloride 106 mmol/L (98-107); Creatinine Clr Calc Pharmacy 43.1423; Glomerular Filtration Rate 34.1 mL/min (90-130); Glucose 116 mg/dL (65-115); Osmolality Calculated 308 mOsm/kg (285-295); Potassium 3.8 mmol/L (3.5-5.1); Sodium 146 mmol/L (136-145)
[2024-04-10] MEDS: ceFAZolin 2,000 mg SDV 2000 MG IVP (07:10)
--- NOTE | 2024-04-10 07:10 | ANES.PROC ---
Anesthesia Procedures Procedure/Date: 04/10/24 Nerve Block ^: Nerve Block 1: Main Anesthesia: general anesthesia Time Out Performed: Yes Consent: requested by attending/covering physician and from patient Nerve block location: popliteal Anesthesia monitors applied: pulse oximetry, EKG, BP cuff and oxygen Nerve block position: supine Anesthetic Used: ropivicaine 0.5% Amount of anesthesia used (mL): 25 Ultrasound used to: recognize landmarks Nerve Stimulator Used?: Yes Interscalene/Femoral BLK: other needle (pjunk) Injection: neg aspiration of heme Patient Tolerated Procedure: well Complications: none Additional Comments: decadron 4mg added to block Nerve Block 2: Main Anesthesia: general anesthesia Time Out Performed: Yes Consent: requested by attending/covering physician and from patient Nerve block location: adductor canal Anesthesia monitors applied: pulse oximetry, EKG, BP cuff and oxygen Nerve block position: supine Anesthetic Used: ropivicaine 0.5% Amount of anesthesia used (mL): 15 Nerve Stimulator Used?: No Injection: neg aspiration of heme Patient Tolerated Procedure: well Complications: none
--- NOTE | 2024-04-10 10:06 | W.PM.BPON ---
Date of procedure: 04/10/2024 Surgeon name: Ailyn FishmanPAdia Coin Machine Supervisor(s) name(s): Casey Procedure(s) performed: Open reduction internal fixation right trimalleolar ankle fracture, removal external fixator right lower extremity Description of findings: Right trimalleolar ankle fracture Estimated blood loss: 5 cc Tourniquet time: 120 minutes Specimen(s) removed: None Post-operative diagnosis: Right trimalleolar ankle fracture
--- NOTE | 2024-04-10 10:06 | PM.OP ---
Operative Report Date of procedure: April 10, 2024 Surgeon: Tyler Hinojosa DPM Procedure: Date of procedure: 04/10/2024 Pre-op diagnosis: Right trimalleolar ankle fracture Post-op diagnosis: Same Post-op findings: Right trimalleolar ankle fracture Procedure done: 1. Open reduction internal fixation right trimalleolar ankle fracture CPT 55065 2. Removal external fixator under general sedation CPT 02510 Implants: Straight fibular plate, medial malleolar hook plate [employer] Specimens removed: None Surgeon: Dr. Tyler Hinojosa DPM Ventilating Engineer: Casey Estimated blood loss: 5 cc Tourniquet time: 120 minutes Complications: None Patient is a 49-year-old female that has a history of right trimalleolar ankle fracture. Patient return to the operating room today for removal of external fixator and definitive fixation. A lengthy discussion regarding the procedure, including risks and complications has been had with the patient and is noted in the recent clinic note. Written and verbal consent have been obtained. All patient questions have been answered to the patient?s satisfaction. No written or verbal guarantees have been given or implied. The patient has been NPO since midnight. The history has been reviewed and the history and physical is current. The signed consent was confirmed and placed in the patient chart. Patient imaging has been reviewed and is consistent with the diagnosis. Under mild sedation, the patient was brought into the operating room and placed on the table in the supine position. IV antibiotics were given by the anesthesia team as preoperative surgical prophylaxis. General sedation was then performed by the anesthesiateam. A popliteal block was performed by the anesthesia department. A pneumatic tourniquet was then placed about the right thigh. At this point, the external fixator was removed leaving the tibial half pins and calcaneal pin in place. Pins were prepped with Betadine prep before being removed sterilely. The operative extremity was then prepped and draped in the usual fashion. The extremity was then elevated and exsanguinated before the tourniquet was inflated to 325 mmHg. After inflation, the following procedure was then performed. Attention was directed to the lateral aspect of the right ankle where a 10 cm incision was made overlying the fibula. Dissection was carried down through subcutaneous the superficial fascia to the level of periosteum which was incised to expose the fibular fracture. The fracture was cleaned out using a combination of curette and dental pick to remove hematoma formation. The fibula was then reduced to an appropriate anatomic position. A one third tubular plate was placed on the posterior aspect of the fibula in antiglide fashion. Plate was filled with combination of locking and nonlocking screws. Good position of the plate and screws was noted. Attention was then directed to the medial aspect of the ankle where a 7 cm incision was made using a #15 blade. Dissection was carried down through subcutaneous the superficial fascia to the level of the medial malleolus. Again, fracture site was devoided of hematoma formation using a combination of dental pick and curette. Medial malleolus was reduced to appropriate anatomic position. Two headed partially-threaded screws were then inserted across medial malleolus. Upon tightening the screws stress riser to develop in the medial malleolus. The screws were removed and it was determined that best course of action would be to use a medial hook plate for the medial malleolus. This was positioned into the appropriate position and confirmed on C-arm imaging. It was fixated appropriately using a combination of locking and nonlocking screws. At this point the syndesmosis was evaluated and noted to be intact. The site was irrigated with copious months sterile saline before attention was directed to closure. Deep tissues closed with 3-0 Vicryl followed by subcuticular closure with 4-0 Vicryl and skin closure with skin yusuf. The tourniquet was let down good hyperemic response was noted to all digits of the right foot. Incision sites were dressed with Xeroform, 4 x 4 gauze, Kerlix before the patient was placed in a well-padded below the knee posterior splint. The patient tolerated the procedure and anesthesia well and without complication. The patient was transported from the operating room to the recovery room with vital signs stable and vascular status intact to all digits of the right foot. The patient was given both written and verbal instructions to remain nonweightbearing to the operative extremity, to keep dressings/splint clean, dry and intact and to take pain medication as directed. The patient will follow-up in the outpatient setting at their scheduled appointment. The patient was discharged with my personal number and was instructed to call if any questions or issues should arise. They were discharged home once anesthesia criteria was met.
--- NOTE | 2024-04-10 11:20 | ANE.PACU2 ---
Inpatient post-anesthesia follow up: Airway intact: Yes Vital signs: Temperature 98.4 F Pulse Rate 84 Respiratory Rate 16 Blood Pressure 109/71 Pulse Oximetry 93 Oxygen Delivery Me thod Room Air Oxygen Flow Rate 3 Fraction of Inspir ed Oxygen Hydration adequate: Yes Nausea and vomiting: No Pain level: 1 Mental status: Baseline
== END 2024-04-10 11:20 | disposition home or self-care (01) ==
PROVIDERS: Student in an Organized Health Care Education/Training Program; PCP Registered Nurse; Visit Provider Podiatrist Foot & Ankle Surgery
PROC: (CPT 20694; principal; 2024-04-10 07:00)
DX: S82.851A Displaced trimalleolar fracture of right lower leg, initial encounter for closed fracture (principal); X58.XXXA Exposure to other specified factors, initial encounter; I12.9 Hypertensive chronic kidney disease with stage 1 through stage 4 chronic kidney disease, or unspecified chronic kidney disease; N18.9 Chronic kidney disease, unspecified; Z79.82 Long term (current) use of aspirin; E78.5 Hyperlipidemia, unspecified
CPT/HCPCS: 20694; 27822; 80048; C1713; J0131; J0690; J1100; J2371; J2405; J2704; J3010; J7030

== ENCOUNTER 2024-04-24 09:42 | Outpatient (CLI) | payer BC, SELFPAY ==
[2024-04-24 10:57] LABS: Alanine Aminotransferase 27 U/L (0-33); Albumin Level 4.1 g/dL (3.5-5.2); Alkaline Phosphatase 121 U/L (35-105); Blood Urea Nitrogen 13 mg/dL (6-20); Calcium 9.6 mg/dL (8.5-10.5); Carbon Dioxide 26 mmol/L (22-29); Chloride 105 mmol/L (98-107); Globulin 3.1 g/dL (1.3-4.6); Glomerular Filtration Rate 43.4 mL/min (90-130); Glucose 104 mg/dL (65-115); Phosphorus 3.5 mg/dL (2.5-4.5); Sodium 143 mmol/L (136-145); Total Bilirubin 0.6 mg/dL (0.15-1.2); Total Protein 7.2 g/dL (6.6-8.7)
[2024-04-24 10:58] LABS: Anion Gap 16.5 (5-19); Aspartate Amino Transferase 20 U/L (0-32); Potassium 4.5 mmol/L (3.5-5.1)
[2024-04-26 16:29] LABS: Osmolality Urine 116 mOsm/kg (50-1200)
== END 2024-04-24 09:43 | disposition home or self-care (01) ==
PROVIDERS: PCP Registered Nurse; Visit Provider Registered Nurse
DX: Q61.2 Polycystic kidney, adult type; Z76.89 Persons encountering health services in other specified circumstances; S82.851D Displaced trimalleolar fracture of right lower leg, subsequent encounter for closed fracture with routine healing; X58.XXXD Exposure to other specified factors, subsequent encounter; N18.9 Chronic kidney disease, unspecified
CPT/HCPCS: 36415; 73610; 80069; 80076; 83935

== ENCOUNTER 2024-04-24 14:00 | Outpatient (CLI) | payer BC, SELFPAY | END 2024-04-24 14:01 | disposition home or self-care (01) | LOC: SPT 14:04 | PROVIDERS: PCP Registered Nurse; Visit Provider Podiatrist Foot & Ankle Surgery | DX: Z46.89 Encounter for fitting and adjustment of other specified devices (principal); S82.851D Displaced trimalleolar fracture of right lower leg, subsequent encounter for closed fracture with routine healing; X58.XXXD Exposure to other specified factors, subsequent encounter | CPT/HCPCS: L4361 ==

== ENCOUNTER → 2024-05-08 16:08 | Outpatient (BNVA) | payer BC, SELFPAY | PROVIDERS: PCP Registered Nurse; Visit Provider Podiatrist Foot & Ankle Surgery | DX: S82.851A Displaced trimalleolar fracture of right lower leg, initial encounter for closed fracture (principal); X58.XXXA Exposure to other specified factors, initial encounter; N18.9 Chronic kidney disease, unspecified | CPT/HCPCS: 73610 ==

== ENCOUNTER → 2024-05-29 12:54 | Outpatient (BNVA) | payer BC, SELFPAY | PROVIDERS: PCP Registered Nurse; Visit Provider Podiatrist Foot & Ankle Surgery | DX: S82.851D Displaced trimalleolar fracture of right lower leg, subsequent encounter for closed fracture with routine healing; X58.XXXD Exposure to other specified factors, subsequent encounter; Z98.890 Other specified postprocedural states; N18.9 Chronic kidney disease, unspecified | CPT/HCPCS: 73610 ==

== ENCOUNTER → 2024-06-11 11:14 | Outpatient (BNVA) | payer BC, SELFPAY | PROVIDERS: PCP Registered Nurse; Visit Provider Podiatrist Foot & Ankle Surgery | DX: S82.851D Displaced trimalleolar fracture of right lower leg, subsequent encounter for closed fracture with routine healing; Z98.890 Other specified postprocedural states; X58.XXXD Exposure to other specified factors, subsequent encounter | CPT/HCPCS: 73610 ==

== ENCOUNTER 2024-06-28 07:13 | Outpatient (CLI) | payer BC, SELFPAY ==
[2024-06-28 08:09] LABS: Alanine Aminotransferase 19 U/L (0-33); Albumin Level 4.2 g/dL (3.5-5.2); Alkaline Phosphatase 84 U/L (35-105); Anion Gap 13.2 (5-19); Aspartate Amino Transferase 15 U/L (0-32); Blood Urea Nitrogen 13 mg/dL (6-20); Calcium 9.7 mg/dL (8.5-10.5); Carbon Dioxide 28 mmol/L (22-29); Chloride 107 mmol/L (98-107); Globulin 3.1 g/dL (1.3-4.6); Glomerular Filtration Rate 36.8 mL/min (90-130); Glucose 99 mg/dL (65-115); Phosphorus 3.2 mg/dL (2.5-4.5); Potassium 4.2 mmol/L (3.5-5.1); Sodium 144 mmol/L (136-145); Total Bilirubin 0.4 mg/dL (0.15-1.2); Total Protein 7.3 g/dL (6.6-8.7)
[2024-07-01 15:55] LABS: Osmolality Urine 179 mOsm/kg (50-1200)
== END 2024-06-28 07:14 | disposition home or self-care (01) ==
PROVIDERS: PCP Registered Nurse; Visit Provider Registered Nurse
DX: Q61.2 Polycystic kidney, adult type (principal)
CPT/HCPCS: 80069; 80076; 83935

== ENCOUNTER 2024-07-18 14:09 | Emergency (ER) | payer BC, SELFPAY ==
--- NOTE | 2024-07-18 14:18 | XRR_ITS ---
PROCEDURE INFORMATION: Exam: XR Chest Exam date and time: 07/18/2024 2:52 PM Age: 49 years old Clinical indication: Shortness of breath; Additional info: Syncope TECHNIQUE: Imaging protocol: Radiologic exam of the chest. Views: 1 view. COMPARISON: CR XR chest 1V portable [id number] 03/28/2024 12:04 PM FINDINGS: Lungs: Lungs are clear. Pleural spaces: There is no pleural effusion or pneumothorax. Heart/Mediastinum: Cardiomediastinal contours are unremarkable. Bones/joints: Bones are unremarkable. XR/XR chest 1V portable [id number] IMPRESSION: No acute findings.
--- NOTE | 2024-07-18 14:18 | ECG_ITS ---
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 Measurements Intervals [place] Rate: 82 P: 40 MD: 150 QRS: -5 QRSD: 82 T: 14 QT: 339 QTc: 396 Interpretive Statements SINUS RHYTHM LOW QRS VOLTAGE IN PRECORDIAL LEADS [QRS DEFLECTION < 1.0 mV IN CHEST LEADS] PATTERN CONSISTENT WITH PULMONARY DISEASE Compared to ECG 03/28/2024 15:19:10 Low QRS voltage now present Electronically Signed On 07-19-2024 09:31:45 RECORD PRESS TENDER by Rishabh Woods M.D. [id number]
[2024-07-18 14:26] VITALS: BP 101/69; PULSE 87; TEMP 36.6; O2SAT 98
[2024-07-18 15:00] VITALS: BP 127/57; PULSE 73; RESP 16; O2SAT 97
[2024-07-18 15:30] VITALS: BP 134/76; PULSE 68; RESP 16; O2SAT 92
[2024-07-18 15:40] LABS: Basophils % 0.5 %; Eosinophils % 0.1 %; Hematocrit 41.6 % (36-47); Lymphocytes # 1.5 10^3/uL (0.8-4.8); Lymphocytes % 19.8 %; Mean Corpuscular HGB Conc 31.7 g/dL (30-55); Mean Corpuscular Volume 97.7 fl (85-98); Mean Platelet Volume 10.8 fL (7.4-10.4); Monocytes # 0.6 10^3/uL (0.2-0.9); Monocytes % 8.4 %; Neutrophils # 5.37 10^3/uL (1.8-7.7); Neutrophils % 70.8 %; Nucleated Red Blood Cells % 0 %; Platelet Count 230 10^3/cmm (157-399); Red Blood Count 4.26 10^6/uL (3.85-5.65); Red Cell Distribution Width 13.2 % (12.1-15.1); White Blood Count 7.59 10^3/uL (3.29-11.43)
[2024-07-18 15:59] LABS: Alanine Aminotransferase 42 U/L (0-33); Albumin Level 4.1 g/dL (3.5-5.2); Alkaline Phosphatase 106 U/L (35-105); Anion Gap 21.4 (5-19); Aspartate Amino Transferase 29 U/L (0-32); Blood Urea Nitrogen 12 mg/dL (6-20); Calcium 9.2 mg/dL (8.5-10.5); Carbon Dioxide 19 mmol/L (22-29); Chloride 99 mmol/L (98-107); Creatinine Clr Calc Pharmacy 43.1423; Glomerular Filtration Rate 34.1 mL/min (90-130); Glucose 113 mg/dL (65-115); Osmolality Calculated 283 mOsm/kg (285-295); Potassium 3.4 mmol/L (3.5-5.1); Sodium 136 mmol/L (136-145); Total Bilirubin 0.3 mg/dL (0.15-1.2); Total Protein 7.1 g/dL (6.6-8.7)
[2024-07-18 16:01] LABS: Troponin(5th) Baseline 8 ng/L (0-10)
--- NOTE | 2024-07-18 16:18 | ECG_ITS ---
[facility] Date: 2024-07-18 Pat Name: Melisa Moreno Department: Room: Gender: Female Grievance Manager: : 1975 Requested By: Marry Rosenberg Order Number: [id number] Marcos MD: Rishabh Woods M.D. Measurements Intervals [place] Rate: 73 P: 31 CO: 151 QRS: -5 QRSD: 83 T: 15 QT: 363 QTc: 400 Interpretive Statements SINUS RHYTHM LOW QRS VOLTAGE IN PRECORDIAL LEADS [QRS DEFLECTION < 1.0 mV IN CHEST LEADS] PATTERN CONSISTENT WITH PULMONARY DISEASE Compared to ECG 07/18/2024 14:24:26 No significant changes Electronically Signed On 07-19-2024 22:08:27 MAITRE D by Rishabh Woods M.D. [id number]
[2024-07-18 16:56] VITALS: BP 154/85; PULSE 80; RESP 17; O2SAT 93
--- NOTE | 2024-07-18 17:00 | ED_ITS ---
HPI - Syncope 2 General: Chief Complaint: Syncope Stated Complaint: near syncopal ep Time Seen by Provider: 07/18/24 14:11 Source: patient and family Mode of arrival: wheelchair Limitations: no limitations History of Present Illness: Patient is a nice 49-year-old female presents to ED today for evaluation of presyncopal episode that occurred while at physical therapy earlier today. Patient states while at physical therapy, she began feeling lightheaded and dizzy and felt flushed and began having tunnel vision. She states the physical therapist lowered her to the floor. Patient never lost consciousness. Patient states she has had at least 2 previous similar episodes since April. She feels like mainly these occur after periods where she is not eating and drinking adequately. She states she did have a stomach bug starting on Monday of this week and has not been eating and drinking much because of this. She does feel like she is recovering. She is not having any abdominal pain. She has not had any vomiting or diarrhea over the past 24 hours. Patient states in all 3 of these episodes, she never had any episodes of chest pain, shortness of breath, palpitations, or difficulty breathing. Patient states she does have a history of polycystic kidney disease. MD complaint: felt faint and almost passed out Onset (ago): hour(s) -: minutes(s) Prodromal symptoms: lightheaded Witnessed: Yes - by Bystander Injuries sustained associated with event: none Associated symptoms: Reports no associated symptoms; Deny abdominal pain, chest pain, fever(s), headache(s) or nausea Treatments prior to arrival: none Related Data Home Medications Medication Instructions Recorded Confirmed lisinopril 10 mg tablet 10 mg PO DAILY 04/20/20 07/02/24 atorvastatin 10 mg tablet 10 mg PO DAILY 03/29/24 07/02/24 sertraline 25 mg tablet 25 mg PO DAILY 03/29/24 07/02/24 tolvaptan (polycys kidney dis) 45 See Rx Instructions .Route .COMPLEX 03/29/24 07/02/24 mg (AM)/15 mg (PM) tablets (Aminahynarque) Previous Rx's Medication Instructions Recorded aspirin 81 mg capsule 81 mg PO DAILY #30 caps 03/29/24 hydrocodone 10 mg-acetaminophen 1 tab PO Q6H PRN pain #28 tabs 04/10/24 325 mg tablet CAM Boot #1 ea 04/24/24 Allergies Allergy/AdvReac Type Severity Reaction Status Date / Time Sulfa (Sulfonamide Allergy itching, Verified 07/18/24 14:31 Antibiotics) rash Review of Systems 2 Const: Denies: fever(s), chills, body aches, fatigue or malaise Eyes: Denies: photophobia, floaters or seeing flashes ENMT: Denies: throat pain, odynophagia, nasal discharge, nasal congestion or sinus pain Card: Reports: pre-syncope; Denies: chest pain, palpitations, irregular heart rhythm, edema, swelling of feet/ankles, syncope, dyspnea on exertion, orthopnea, leg pain with exertion or acrocyanosis Resp: Denies: dyspnea GI: Reports: other (recently had stomach bug but symptoms subsided now); Denies: abdominal pain, nausea, vomiting or diarrhea : Denies: flank pain, difficulty voiding, dysuria, urinary frequency, urinary urgency or urinary hesitancy Musc: Denies: neck pain, back pain, extremity pain, extremity swelling, joint pain or joint swelling Skin/Breast: Denies: rash Neuro: Denies: headache(s), numbness in extremities, weakness in extremities, sensory changes, difficulty walking or confusion PFSH ED 2 PFSH: Medical History Vertigo Anxiety Hyperlipidemia Hypertension Chronic kidney disease Polycystic kidney disease Well woman exam with routine gynecological exam Surgical History History of cholecystectomy Family History Mother Hypertension Sister Hypercholesteremia Social History Smoking and tobacco/nicotine status: unknown if used tobacco/nicotine Alcohol intake: never Substance/Drug Use: never Physical Exam 2 Const: COMMON NORMALS: no acute distress, patient oriented x3, no limitations, healthy appearing, alert and well nourished GENERAL APPEARANCE: cooperative ORIENTATION/CONSCIOUSNESS: Yes awake, Yes oriented to person, Yes oriented to place and Yes oriented to time HENMT: COMMON NORMALS: normocephalic and atraumatic HEAD & SCALP: normal to inspection, normocephalic and atraumatic FACE & SINUS: normal facial exam and face symmetric Eye: COMMON NORMALS: Equal, round and reactive pupils present and EOMs intact bilaterally GENERAL EYE: appearance normal, both eyes and all related structures and normal light reflex PUPIL: Yes Equal, round and reactive pupils present DIRECT OPHTHALMOSCOPY: Yes normal light reflex OTHER: no nystagmus Neck/C-Spine: COMMON NORMALS: full ROM, no lymphadenopathy, supple and no meningeal signs Chest: COMMONS NORMALS: normal inspection of the chest and normal palpation of entire chest wall Resp: COMMON NORMALS: normal respiratory effort and clear to auscultation bilaterally AUSCULTATION: clear to auscultation bilaterally Cardio: COMMON NORMALS: regular rate and regular rhythm RATE: regular rate RHYTHM: regular rhythm GI: COMMON NORMALS: Normal to inspection, nondistended, normoactive bowel sounds present, Soft to palpation, non-tender, No hepatosplenomegaly present and no masses PALPATION: Yes Soft to palpation and Yes No hepatosplenomegaly present : COMMON NORMALS: Yes no CVA tenderness BLADDER/KIDNEY EXAM: Yes no CVA tenderness Back/Pelvis: COMMON NORMALS: no CVA tenderness and thoracic and lumbar spine normal to inspection Extremity: COMMON NORMALS: normal to inspection GENERAL: Yes normal exam except as noted Neuro: RAQUEL COMA SCALE: document GCS findings [place] coma scale eye opening: Spontaneous [place] coma scale verbal response: Orientated Raquel coma scale motor response: Obey commands Raquel coma scale total score: 15 COMMON NORMALS: patient oriented x3, CN's II-XII intact bilaterally, moves all extremities, no focal motor deficits and no sensory deficits noted S ENSORIUM/ORIENTATION: Yes alert, Yes oriented to person, Yes oriented to place and Yes oriented to time MENINGEAL SIGNS: Yes no meningeal signs Skin: COMMON NORMALS: no rashes or lesions noted GENERAL SKIN EXAM: no rashes or lesions noted Course 2 Vital Signs: Vital signs: Vital Signs Temperature 97.8 F 07/18/24 14:26 Pulse Rate 99 07/18/24 17:30 Respiratory Rate 18 07/18/24 17:30 Blood Pressure 146/90 07/18/24 17:30 Pulse Oximetry 99 07/18/24 17:30 Oxygen Delivery Me thod Room Air 07/18/24 16:56 MDM - Syncope Medical Decision Making Patient was able to eat and drink here and received a liter of fluids. She is reportedly feeling much better. At this time I do not have any concern for emergent etiology for her presyncopal episode. Patient states she has had several episodes of these previously. She has never had any chest pain, shortness of breath, difficulty breathing. No signs or symptoms concerning for PE. Most likely some dehydration/fatigue related to recent gastroenteritis. Blood work overall is okay. Mild hypokalemia. She was given oral supplementation for this. Creatinine is somewhat elevated at 1.6. She does have a history of chronic kidney disease. Looking at previous labs through March, baseline is roughly 1.4. UA is clear. CXR showing no acute findings. EKG is nonischemic. Baseline and 2-hour troponins are normal. Patient will be allowed discharge with recommendations to follow-up with primary care next week. Return ED precautions given. Medical Records I reviewed the patient's medical records. Lab Data I reviewed the patient's lab results. 07/18/24 15:26 07/18/24 15:26 Radiology Impressions Chest X-Ray 07/18/24 14:18 IMPRESSION: No acute findings. Laboratory Results WBC 7.59 10^3/uL (3.29-11.43) 07/18/24 15:26 RBC 4.26 10^6/uL (3.85-5.65) 07/18/24 15:26 Hgb 13.20 g/dL (11.27-16.99) 07/18/24 15:26 Hct 41.6 % (36-47) 07/18/24 15:26 MCV 97.7 fl (85-98) 07/18/24 15:26 MCH 31.0 pg (27-33) 07/18/24 15:26 MCHC 31.7 g/dL (30-55) 07/18/24 15:26 RDW 13.2 % (12.1-15.1) 07/18/24 15:26 Plt Count 230 10^3/cmm (157-399) 07/18/24 15:26 MPV 10.8 fL (7.4-10.4) H 07/18/24 15:26 Neut % (Auto) 70.8 % 07/18/24 15:26 Lymph % (Auto) 19.8 % 07/18/24 15:26 Mitchell % (Auto) 8.4 % 07/18/24 15:26 Eos % (Auto) 0.1 % 07/18/24 15:26 Baso % (Auto) 0.5 % 07/18/24 15:26 Neut # (Auto) 5.37 10^3/uL (1.8-7.7) 07/18/24 15:26 Lymph # (Auto) 1.5 10^3/uL (0.8-4.8) 07/18/24 15:26 Mitchell # (Auto) 0.6 10^3/uL (0.2-0.9) 07/18/24 15:26 Eos # (Auto) 0.0 10^3/uL (0.0-0.8) 07/18/24 15:26 Baso # (Auto) 0.0 10^3/uL (0.0-0.1) 07/18/24 15:26 Nucleated RBC % (auto) 0 % 07/18/24 15: Nucleated RBCs # 0.0 /100WBC 07/18/24 15:26 Sodium 136 mmol/L (136-145) 07/18/24 15:26 Potassium 3.4 mmol/L (3.5-5.1) L 07/18/24 15:26 Chloride 99 mmol/L (98-107) 07/18/24 15:26 Carbon Dioxide 19 mmol/L (22-29) L 07/18/24 15:26 Anion Gap 21.4 (5-19) H 07/18/24 15:26 BUN 12 mg/dL (6-20) 07/18/24 15:26 Creatinine 1.6 mg/dL (0.5-0.9) H 07/18/24 15:26 GFR Calculation 34.1 mL/min (90-130) L 07/18/24 15:26 Glucose 113 mg/dL (65-115) 07/18/24 15:26 Calculated Osmolality 283 mOsm/kg (285-295) L 07/18/24 15:26 Calcium 9.2 mg/dL (8.5-10.5) 07/18/24 15:26 Total Bilirubin 0.3 mg/dL (0.15-1.2) 07/18/24 15:26 AST 29 U/L (0-32) 07/18/24 15:26 ALT 42 U/L (0-33) H 07/18/24 15:26 Alkaline Phosphatase 106 U/L (35-105) H 07/18/24 15:26 Troponin T Baseline 8 ng/L (0-10) 07/18/24 15:26 Troponin T 120 Minute 8.12 ng/L (0-10) 07/18/24 16:27 Delta Troponin T 0.12 ABS# (0-10) 07/18/24 16:27 Total Protein 7.1 g/dL (6.6-8.7) 07/18/24 15:26 Albumin 4.1 g/dL (3.5-5.2) 07/18/24 15:26 Globulin 3.0 g/dL (1.3-4.6) 07/18/24 15:26 Urine Color Yellow (Yellow) 07/18/24 17:20 Urine Appearance Clear (CLEAR) 07/18/24 17:20 Urine pH 5.5 (5-7) 07/18/24 17:20 Ur Specific [place] 1.003 (1.005-1.030) L 07/18/24 17:20 Urine Protein Negative (Negative) 07/18/24 17:20 Urine Glucose (UA) Negative (Normal) 07/18/24 17:20 Urine Ketones Negative (Negative) 07/18/24 17:20 Urine Blood Negative (Negative) 07/18/24 17:20 Urine Nitrate Negative (Negative) 07/18/24 17:20 Urine Bilirubin Negative (Negative) 07/18/24 17:20 Urine Urobilinogen 0.2 mg/dL (Negative) 07/18/24 17:20 Ur Leukocyte Esterase Negative (Negative) 07/18/24 17:20 Urine RBC 0-2 /hpf (0-2) 07/18/24 17:20 Urine WBC 0-5 /hpf (0-5) 07/18/24 17:20 Ur Squamous Epith Cells 0-5 /hpf (0-5) 07/18/24 17:20 Amorphous Sediment Not Reportable 07/18/24 17:20 Urine Bacteria None seen /hpf (NONE) 07/18/24 17:20 Hyaline Casts 0-4 /lpf H 07/18/24 17:20 All radiology interpretation(s) finalized by discharge Discharge Plan Discharge Patient Disposition: Home Clinical Impression: Pre-syncope Condition: Stable Prescriptions: No Action lisinopril 10 mg tablet 10 mg PO DAILY (DME) CAM Boot See Rx Instructions .Route .MEDSUPPLY Qty: 1 0RF Rx Instructions: Foot doesn't have to go all the way down in boot. Boot is meant has a protective covering. Patient is non weight bearing. atorvastatin 10 mg tablet 10 mg PO DAILY sertraline 25 mg tablet 25 mg PO DAILY Jynarque 45 mg (AM)/ 15 mg (PM) tablets, sequential See Rx Instructions .ROUTE .COMPLEX Rx Instructions: Take 45mg in the morning and 15mg 8 hours later. aspirin 81 mg capsule 81 mg PO DAILY Qty: 30 0RF hydrocodone-acetaminophen 10-325 mg tablet 1 tab PO Q6H PRN (Reason: pain) Qty: 28 0RF Discharge Orders: Discharge ED (Routine); Ordered 07/18/24 Ordered By: Marry Rosenberg Referrals: Kaye Gill [Primary Care Provider] - Patient Instructions: Near Syncope (ED) Activity Restrictions/Additional Instructions: As we discussed, I recommend rest and pushing fluids over the next several days as well as increasing dietary intake. You may return to the emergency department for any further episodes of passing out, any chest pain, shortness of breath, difficulty breathing, significant lightheadedness/dizziness, generally feeling worse or unwell, or any other concerns you may have. I hope you begin to feel better soon. As we discussed, I would like you to follow-up with primary care next week if you do not feel like you are improving. Coding Level of Care Code ED Allergist/Immunologist Physician for Cait Antonio
[2024-07-18] MEDS: potassium chloride ER 20 mEq Tablet 40 MEQ PO (17:16)
[2024-07-18] MEDS: sodium chloride 0.9% 1,000 ML 999 ML IV (17:16)
[2024-07-18 17:22] LABS: Troponin 5 2HR 8.12 ng/L (0-10); Troponin 5 2HR Delta 0.12 ABS# (0-10)
[2024-07-18 17:30] VITALS: BP 146/90; PULSE 99; RESP 18; O2SAT 99
[2024-07-18 18:13] LABS: Bilirubin Urine Negative (Negative); Blood Urine Negative (Negative); Glucose Urine UA Negative (Normal); Ketones Urine Negative (Negative); Leukocyte Esterase Urine Negative (Negative); Nitrate Urine Negative (Negative); Protein Urine Negative (Negative); Specific Gravity, Urine 1.003 (1.005-1.030); Urine Appearance Clear (CLEAR); Urine Color Yellow (Yellow); Urobilinogen Urine 0.2 mg/dL (Negative); pH Urine 5.5 (5-7)
[2024-07-18 18:17] LABS: Add Urine Microscopic? YES; Bacteria Urine None Seen /hpf; Hyaline Casts Urine 0-4 /lpf; RBC Urine 0-2 /hpf (0-2); Squamous Epithelial Cell Urine 0-5 /hpf (0-5); WBC Urine 0-5 /hpf (0-5)
[2024-07-18 18:47] VITALS: BP 122/84; PULSE 78; O2SAT 98
[2024-07-18 18:50] LABS: Add Urine Culture? No; UA Slide Review UA Slide Review Perf
--- NOTE | 2024-07-18 19:13 | PC.NURSE ---
nurse assumed care at 1900
== END 2024-07-18 19:14 | disposition home or self-care (01) ==
PROVIDERS: Emergency Provider Physician Assistant; PCP Registered Nurse
DX: R55 Syncope and collapse (principal); Z79.82 Long term (current) use of aspirin; E78.5 Hyperlipidemia, unspecified; I12.9 Hypertensive chronic kidney disease with stage 1 through stage 4 chronic kidney disease, or unspecified chronic kidney disease; N18.9 Chronic kidney disease, unspecified
CPT/HCPCS: 36415; 71045; 80053; 81001; 84484; 85025; 93005; 99285; J7030

== ENCOUNTER 2024-08-26 07:13 | Outpatient (CLI) | payer BC, SELFPAY ==
[2024-08-26 07:49] LABS: Basophils % 0.3 %; Eosinophils # 0.1 10^3/uL (0.0-0.8); Eosinophils % 1.5 %; Hematocrit 42.2 % (36-47); Lymphocytes # 3.7 10^3/uL (0.8-4.8); Lymphocytes % 39.6 %; Mean Corpuscular HGB Conc 32.2 g/dL (30-55); Mean Corpuscular Hemoglobin 31.3 pg (27-33); Mean Corpuscular Volume 97.2 fl (85-98); Monocytes # 0.6 10^3/uL (0.2-0.9); Monocytes % 6.8 %; Neutrophils # 4.88 10^3/uL (1.8-7.7); Neutrophils % 51.6 %; Nucleated Red Blood Cells % 0 %; Platelet Count 263 10^3/cmm (157-399); Red Blood Count 4.34 10^6/uL (3.85-5.65); Red Cell Distribution Width 12.8 % (12.1-15.1); White Blood Count 9.45 10^3/uL (3.29-11.43)
[2024-08-26 08:08] LABS: Alanine Aminotransferase 25 U/L (0-33); Albumin Level 4.2 g/dL (3.5-5.2); Alkaline Phosphatase 116 U/L (35-105); Aspartate Amino Transferase 19 U/L (0-32); Blood Urea Nitrogen 22 mg/dL (6-20); Calcium 9.4 mg/dL (8.5-10.5); Carbon Dioxide 24 mmol/L (22-29); Chloride 106 mmol/L (98-107); Globulin 2.8 g/dL (1.3-4.6); Glomerular Filtration Rate 36.8 mL/min (90-130); Glucose 104 mg/dL (65-115); Osmolality Calculated 298 mOsm/kg (285-295); Sodium 142 mmol/L (136-145); Total Bilirubin 0.3 mg/dL (0.15-1.2)
[2024-08-26 08:11] LABS: Anion Gap 16.8 (5-19); Potassium 4.8 mmol/L (3.5-5.1)
[2024-08-26 08:30] LABS: Urine Creatinine 40 mg/dL (28-217); Urine Protein Random 4 mg/dL
== END 2024-08-26 07:14 | disposition home or self-care (01) ==
PROVIDERS: PCP Registered Nurse; Visit Provider Registered Nurse
DX: N18.31 Chronic kidney disease, stage 3a (principal); Q61.2 Polycystic kidney, adult type; Z76.89 Persons encountering health services in other specified circumstances
CPT/HCPCS: 36415; 80053; 82570; 84156; 85025

== ENCOUNTER 2024-09-30 07:12 | Outpatient (CLI) | payer BC, SELFPAY ==
[2024-09-30 07:45] LABS: Basophils # 0.1 10^3/uL (0.0-0.1); Basophils % 0.6 %; Eosinophils # 0.2 10^3/uL (0.0-0.8); Eosinophils % 2.2 %; Hematocrit 38.7 % (36-47); Lymphocytes # 3.5 10^3/uL (0.8-4.8); Lymphocytes % 41.4 %; Mean Corpuscular HGB Conc 32.6 g/dL (30-55); Mean Corpuscular Hemoglobin 31.9 pg (27-33); Mean Platelet Volume 9.9 fL (7.4-10.4); Monocytes # 0.6 10^3/uL (0.2-0.9); Monocytes % 6.9 %; Neutrophils # 4.04 10^3/uL (1.8-7.7); Neutrophils % 48.3 %; Nucleated Red Blood Cells % 0 %; Platelet Count 313 10^3/cmm (157-399); Red Blood Count 3.95 10^6/uL (3.85-5.65); Red Cell Distribution Width 12.7 % (12.1-15.1); White Blood Count 8.36 10^3/uL (3.29-11.43)
[2024-09-30 08:06] LABS: Alanine Aminotransferase 30 U/L (0-33); Albumin Level 4.1 g/dL (3.5-5.2); Alkaline Phosphatase 120 U/L (35-105); Anion Gap 14.7 (5-19); Aspartate Amino Transferase 20 U/L (0-32); Blood Urea Nitrogen 16 mg/dL (6-20); Calcium 9.2 mg/dL (8.5-10.5); Carbon Dioxide 26 mmol/L (22-29); Chloride 108 mmol/L (98-107); Globulin 2.8 g/dL (1.3-4.6); Glomerular Filtration Rate 39.8 mL/min (90-130); Glucose 106 mg/dL (65-115); Osmolality Calculated 300 mOsm/kg (285-295); Potassium 4.7 mmol/L (3.5-5.1); Sodium 144 mmol/L (136-145); Total Bilirubin 0.2 mg/dL (0.15-1.2); Total Protein 6.9 g/dL (6.6-8.7)
[2024-09-30 08:10] LABS: Urine Creatinine 32 mg/dL (28-217); Urine Protein Random 4 mg/dL
[2024-09-30 08:11] LABS: UPRO/UCREAT Ratio 0.13 mg/mg CR
== END 2024-09-30 07:13 | disposition home or self-care (01) ==
LOC: LAB 07:13
PROVIDERS: PCP Registered Nurse; Referring Provider Registered Nurse; Visit Provider Registered Nurse
DX: N18.31 Chronic kidney disease, stage 3a (principal); Q61.2 Polycystic kidney, adult type; Z76.89 Persons encountering health services in other specified circumstances
CPT/HCPCS: 36415; 80053; 82570; 84156; 85025

== ENCOUNTER → 2024-12-26 07:32 | Outpatient (BNVA) | payer BC, SELFPAY | PROVIDERS: PCP Family Medicine; Visit Provider Registered Nurse | DX: Q61.3 Polycystic kidney, unspecified (principal) | CPT/HCPCS: 80076 ==

== ENCOUNTER → 2025-01-02 09:24 | Outpatient (BNVA) | payer BC, SELFPAY | PROVIDERS: PCP Family Medicine; Visit Provider Family Medicine | DX: Z13.6 Encounter for screening for cardiovascular disorders (principal); Z01.419 Encounter for gynecological examination (general) (routine) without abnormal findings; I10 Essential (primary) hypertension; E55.9 Vitamin D deficiency, unspecified; Z86.39 Personal history of other endocrine, nutritional and metabolic disease | CPT/HCPCS: 80053; 80061; 82306; 84439; 84443; 87624 ==

== ENCOUNTER 2025-01-14 07:30 | Outpatient (CLI) | payer BC, SELFPAY ==
--- NOTE | 2025-01-14 08:00 | MM_ITS ---
WS: [id number] BILATERAL 3D TOMOSYNTHESIS DIGITAL SCREENING MAMMOGRAPHY WITH CAD CLINICAL INFORMATION: screening HISTORY: Screening mammogram. No current complaints. COMPARISON: 2020 TECHNIQUE: Bilateral CC and MLO views. FINDINGS: Scattered fibroglandular densities bilaterally. No suspicious focal mass, asymmetry, calcifications, or architectural distortion. No evidence of malignancy. MM/MM scr BI tomosynthesis [id number] IMPRESSION: DENSITY: There are scattered areas of fibroglandular density. BI-RADS: 1 - Negative. FOLLOW UP: 1 Year Follow-up Recommend return to annual screening mammography.
== END 2025-01-14 07:31 | disposition home or self-care (01) ==
PROVIDERS: PCP Family Medicine; Visit Provider Family Medicine
DX: Z12.31 Encounter for screening mammogram for malignant neoplasm of breast (principal)
CPT/HCPCS: 77063; 77067

== ENCOUNTER 2025-02-03 20:00 | Outpatient (CLI) | payer BC, SELFPAY | END 2025-02-03 20:01 | disposition home or self-care (01) | LOC: SLEEP 22:36 | PROVIDERS: PCP Family Medicine; Referring Provider Family Medicine; Visit Provider Internal Medicine Pulmonary Disease | DX: G47.33 Obstructive sleep apnea (adult) (pediatric) (principal) | CPT/HCPCS: 95810 ==

== ENCOUNTER → 2025-03-28 07:08 | Outpatient (BNVA) | payer BC, SELFPAY | PROVIDERS: PCP Family Medicine; Visit Provider Family Medicine | DX: R39.9 Unspecified symptoms and signs involving the genitourinary system (principal); N18.32 Chronic kidney disease, stage 3b; R79.89 Other specified abnormal findings of blood chemistry | CPT/HCPCS: 80069; 80076; 81003; 84439; 85025 ==

== ENCOUNTER 2025-05-05 16:14 | Outpatient (CLI) | payer BC, SELFPAY ==
--- NOTE | 2025-05-05 16:25 | US_ITS ---
WS: [id number] RENAL ULTRASOUND HISTORY: HX OF PCKD COMPARISON: 02/19/2011 TECHNIQUE: 2-D and color Doppler imaging of the kidney submitted. Right kidney: 12.9 cm x 5.2 cm x 5.3 cm. Cortex: 0.7 cm Kidney is enlarged. The entire kidney was not included. Renal cortex is difficult to differentiate. There are numerous cysts of various sizes throughout the kidney. No hydronephrosis is evident. No solid mass identified. Left kidney: 16.2 cm x 7.0 cm x 7.3 cm. Cortex: 1.0 cm Markedly enlarged kidney with numerous cysts throughout the kidney. No hydronephrosis or solid mass identified. Aorta: Normal. Urinary Bladder: Minimally distended. Incidental note is also made of hepatic cysts. US/US renal BI* [id number] IMPRESSION: 1. No adult polycystic kidney disease. Kidneys are markedly enlarged with innu merable cysts throughout each kidney. 2. No solid masses are identified.
== END 2025-05-05 16:15 | disposition home or self-care (01) ==
LOC: RAD 16:16
PROVIDERS: PCP Family Medicine; Visit Provider Internal Medicine Nephrology
DX: Q61.2 Polycystic kidney, adult type (principal)
CPT/HCPCS: 76770

== ENCOUNTER → 2025-07-01 09:09 | Outpatient (BNVA) | payer BC, SELFPAY | PROVIDERS: PCP Family Medicine; Visit Provider Family Medicine | DX: Q61.2 Polycystic kidney, adult type (principal); N18.32 Chronic kidney disease, stage 3b | CPT/HCPCS: 80069; 80076; 81000; 82310; 83970; 85025 ==